=== PATIENT | female | born 1970 | race Caucasian/White ===

== ENCOUNTER 2020-03-25 07:04 | Emergency (ER) | payer OTHER ==
[2020-03-25 07:14] VITALS: RESP 18; TEMP 98.5
--- NOTE | 2020-03-25 07:55 | XR ---
EXAMINATION TYPE: XR elbow complete RT, XR wrist complete RT, XR forearm RT DATE OF EXAM: 03/25/2020 CLINICAL HISTORY: Fall injury with pain. TECHNIQUE: Frontal, lateral and oblique images of the right wrist and elbow are obtained. Additional fourth scaphoid view right wrist. 2 views right forearm. COMPARISON: None FINDINGS: There are abnormal fat pad signs. Acute nondisplaced transverse fracture through the radia l head is present. 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 The overlying soft tissue floyd ears unremarkable. 2 views of right forearm show no additional acute fracture or dislocation. Overlying soft tissue is u nremarkable. No additional acute fracture or dislocation is seen in the right wrist. Carpal joint spaces are maint ained. Overlying soft tissue is unremarkable. IMPRESSION: There is acute nondisplaced intra-articular transverse fracture of the radial head. Mansoor tional acute avulsion type fracture from the proximal ulna with intra-articular 5 x 3 mm loose body n oted. (Initial encounter closed type posttraumatic fracture)
--- NOTE | 2020-03-25 08:16 | ED ---
General Adult HPI - General Chief complaint: Extremity Injury, Upper Stated complaint: Fall Time Seen by Provider: 03/25/20 07:16 Source: patient, RN notes reviewed Mode of arrival: ambulatory Limitations: no limitations - History of Present Illness Initial comments: 49-year-old female presents for mechanical fall yesterday. Patient states she has been starting to go for frequent walks and tripped over the sidewalk where there was an uneven area. Patient injured her elbow and has had pain radiating to her right wrist since that time. She did not hit her head. She is not on any blood thinners.Patient has no other complaints at this time including shortness of breath, chest pain, abdominal pain, nausea or vomiting, headache, or visual changes. - Related Data Home Medications Medication Instructions Recorded Confirmed clonazePAM [KlonoPIN] 1 mg PO BID 01/25/16 05/05/16 Ziprasidone HCl 160 mg PO DAILY 03/04/16 05/05/16 Vortioxetine Hydrobromide 20 mg PO 05/05/16 05/05/16 [Brintellix] Allergies Allergy/AdvReac Type Severity Reaction Status Date / Time No Known Allergies Allergy Verified 03/25/20 07:14 Review of Systems ROS Statement: Those systems with pertinent positive or pertinent negative responses have been documented in the HPI. ROS Other: All systems not noted in ROS Statement are negative. Past Medical History Past Medical History: No Reported History Additional Past Medical History / Comment(s): anxiety migraines History of Any Multi-Drug Resistant Organisms: None Reported Past Surgical History: No Surgical Hx Reported Past Psychological History: Anxiety, Depression Smoking Status: Current every day smoker Past Alcohol Use History: Rare Past Drug Use History: Marijuana General Exam Limitations: no limitations General appearance: alert, in no apparent distress Head exam: Present: atraumatic, normocephalic, normal inspection Eye exam: Present: normal appearance, PERRL, EOMI. Absent: scleral icterus, conjunctival injection, periorbital swelling ENT exam: Present: normal exam, mucous membranes moist Neck exam: Present: normal inspection. Absent: tenderness, meningismus, lymphadenopathy Respiratory exam: Present: normal lung sounds bilaterally Extremities exam: Present: tenderness (Tenderness along the radial head as well as the olecranon. No tenderness of the scaphoid or wrist or hand.), normal capillary refill (Capillary refill less than 2 seconds, radial pulse 2+.), other (Sensation intact in the right upper extremity. 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 Absent: full ROM (Patient able to flex right elbow to 90 has pain with additional flexion or extension. Full range of motion of the right hand didn't wrist.), pedal edema, joint swelling, calf tenderness Course Vital Signs 03/25/20 07:12 Temperature 98.5 F Pulse Rate 88 Respiratory 18 Rate Blood Pressure 148/62 O2 Sat by Pulse 98 Oximetry Procedures - Orthopedic Splinting/Casting Injury #1 Side: right Upper Extremity Injury Location: elbow Upper Extremity Immobilizer: posterior splint Additional Comments: Neurovascular status intact after splint applied Medical Decision Making - Medical Decision Making X-ray of the elbow wrist and forearm were obtained which showed acute nondisplaced intra-articular transverse fracture of the radial head. Additional acute avulsion type fracture of the proximal ulna with intra-articular 5 x 3 mm loose body noted. She was placed in a long-arm splint and given a sling. Recommended range of motion exercises with the shoulder. Recommend she follow up with orthopedics in the next day or 2. She will return here if she has any worsening symptoms. Disposition Clinical Impression: Elbow fracture, right Disposition: HOME SELF-CARE Condition: Good Instructions (If sedation given, give patient instructions): Elbow Fracture (ED) Additional Instructions: Please take Tylenol for pain. Please follow-up with orthopedics in one to 2 days. Wear sling and splint as directed. Continue to do range of motion exercises of the shoulder while wearing the sling. Return to the emergency department for any worsening symptoms. Is patient prescribed a controlled substance at d/c from ED?: No Referrals: Moises Herndon DO [Primary Care Provider] - 1-2 days Time of Disposition: 08:13
[2020-03-25] MEDS ORDERED: ACET/COD 300 MG/30 MG STARTER PACK 6 TAB BTL PO STA (08:33)
[2020-03-25 08:41] VITALS: BP 141/79; PULSE 82
== END 2020-03-25 08:41 | disposition home or self-care (01) ==
LOC: EC 07:04
DX: S52.124A Nondisplaced fracture of head of right radius, initial encounter for closed fracture (principal); F41.9 Anxiety disorder, unspecified; F32.9 Major depressive disorder, single episode, unspecified; F17.200 Nicotine dependence, unspecified, uncomplicated; Z79.899 Other long term (current) drug therapy; W01.0XXA Fall on same level from slipping, tripping and stumbling without subsequent striking against object, initial encounter; Y92.480 Sidewalk as the place of occurrence of the external cause
CPT/HCPCS: 29105; 99283

== ENCOUNTER → 2022-02-06 | Outpatient (CLI) | payer OTHER ==
--- NOTE | 2022-02-07 11:11 | MM ---
Reason for exam: screening (asymptomatic). Last mammogram was performed 10 years and 5 months ago. History: Took hormonal contraceptives for 18 years beginning at age 17. Physical Findings: A clinical breast exam by your physician is recommended on an annual basis and results should be correlated with mammographic findings. MG 3D Screening Mammo W/Cad Bilateral CC and MLO view(s) were taken. Prior study comparison: October 03, 2016, mammogram, performed at [facility]. July 12, 2015, mammogram, performed at [facility]. July 03, 2014, mammogram, performed at [facility]. September 13, 2011, bilateral digital screening mammo w/CAD. July 20, 2009, bilateral diagnostic digital mammog. There are scattered fibroglandular densities. There are benign appearing round calcifications bilaterally. There is no discrete abnormality. ASSESSMENT: Benign, BI-RAD 2 RECOMMENDATION: Routine screening mammogram of both breasts in 1 year.
== END | disposition home or self-care (01) ==
LOC: RADMAMWWP 07:01
PROVIDERS: ATTEND Student in an Organized Health Care Education/Training Program
DX: Z12.31 Encounter for screening mammogram for malignant neoplasm of breast (principal)
CPT/HCPCS: 77063; 77067

== ENCOUNTER 2022-09-14 10:54 | Inpatient (IN) | payer OTHER ==
[2022-09-14] MEDS ORDERED: ONDANSETRON 4 MG/2 ML VIAL IVP STA (11:19)
[2022-09-14] MEDS ORDERED: SODIUM CHLORIDE 0.9% 1,000 ML IV STA (11:19)
[2022-09-14] MEDS ORDERED: KETOROLAC 15 MG/ML 1 ML VIAL IVP STA (11:19)
--- NOTE | 2022-09-14 11:25 | ED ---
Abdominal Pain HPI - General Chief Complaint: Abdominal Pain Stated Complaint: PCP sent for xray,ABD pain Time Seen by Provider: 09/14/22 11:11 Source: patient, RN notes reviewed Mode of arrival: ambulatory Limitations: no limitations - History of Present Illness Initial Comments: 52-year-old female presents emergency Department chief complaint of abdominal pain. Patient is started yesterday morning has gradually worsened. Patient does admit to fever. Patient states it's in her right lower quadrant. Patient does state that she saw her PCP today sent here for further evaluation patient states she thought she had a urinary tract infection or kidney infection but states her urinalysis was unremarkable. Patient does not have any dysuria she states pain is slightly tender low back. No chest pain or shortness breath she's had a prior ablation no other abdominal surgeries. - Related Data Home Medications Medication Instructions Recorded Confirmed clonazePAM [KlonoPIN] 1 mg PO BID PRN 01/25/16 09/14/22 Allergies Allergy/AdvReac Type Severity Reaction Status Date / Time mirtazapine [From Remeron] AdvReac "crazy Verified 09/14/22 12:05 dreams" Review of Systems ROS Statement: Those systems with pertinent positive or pertinent negative responses have been documented in the HPI. ROS Other: All systems not noted in ROS Statement are negative. Past Medical History Past Medical History: No Reported History Additional Past Medical History / Comment(s): anxiety migraines History of Any Multi-Drug Resistant Organisms: None Reported Past Surgical History: Section Additional Past Surgical History / Comment(s): uterine ablation Past Psychological History: Anxiety, Depression Smoking Status: Current some day smoker Past Alcohol Use History: None Reported, Rare Past Drug Use History: None Reported, Marijuana General Exam Limitations: no limitations General appearance: alert, in no apparent distress Head exam: Present: atraumatic, normocephalic, normal inspection Eye exam: Present: normal appearance, PERRL, EOMI. Absent: scleral icterus, conjunctival injection, periorbital swelling ENT exam: Present: normal exam, mucous membranes moist Neck exam: Present: normal inspection, full ROM. Absent: tenderness, meningismus, lymphadenopathy Respiratory exam: Present: normal lung sounds bilaterally. Absent: respiratory distress, wheezes, rales, rhonchi, stridor Cardiovascular Exam: Present: normal rhythm, tachycardia, normal heart sounds. Absent: systolic murmur, diastolic murmur, rubs, gallop, clicks GI/Abdominal exam: Present: soft, tenderness (Right lower quadrant), normal bowel sounds. Absent: distended, guarding, rebound, rigid Back exam: Absent: CVA tenderness (R), CVA tenderness (L) Neurological exam: Present: alert Skin exam: Present: warm, dry, intact, normal color. Absent: rash Course Vital Signs 09/14/22 11:06 Temperature 99.5 F Pulse Rate 104 H Respiratory 20 Rate Blood Pressure 107/74 O2 Sat by Pulse 100 Oximetry Medical Decision Making - Medical Decision Making 52-year-old presented for abdominal pain CT shows evidence of acute appendicitis with rupture, phlegmon formation. I did discuss case with Dr. Morse who reviewed the images patient was started on antibiotics and IV fluids will be kept nothing by mouth and pending surgery - Lab Data Result diagrams: 09/14/22 11:36 09/14/22 11:36 Lab Results 09/14/22 09/14/22 09/14/22 Range/Units 11:36 11:36 11:36 WBC 11.4 H (3.8-10.6) k/uL RBC 4.42 (3.80-5.40) m/uL Hgb 13.5 (11.4-16.0) gm/dL Hct 39.1 (34.0-46.0) % MCV 88.4 (80.0-100.0) fL MCH 30.4 (25.0-35.0) pg MCHC 34.4 (31.0-37.0) g/dL RDW 13.8 (11.5-15.5) % Plt Count 235 (150-450) k/uL MPV 7.9 Neutrophils % 73 % Lymphocytes % 18 % Monocytes % 6 % Eosinophils % 1 % Basophils % 0 % Neutrophils # 8.3 H (1.3-7.7) k/uL Lymphocytes # 2.1 (1.0-4.8) k/uL Monocytes # 0.7 (0-1.0) k/uL Eosinophils # 0.1 (0-0.7) k/uL Basophils # 0.0 (0-0.2) k/uL Sodium 138 (137-145) mmol/L Potassium 4.4 (3.5-5.1) mmol/L Chloride 101 (98-107) mmol/L Carbon Dioxide 24 (22-30) mmol/L Anion Gap 13 mmol/L BUN 12 (7-17) mg/dL Creatinine 0.62 (0.52-1.04) mg/dL Est GFR (CKD-EPI)AfAm >90 (>60 ml/min/1.73 sqM) Est GFR (CKD-EPI)NonAf >90 (>60 ml/min/1.73 sqM) Glucose 93 (74-99) mg/dL Plasma Lactic Acid Jcarlos 1.3 (0.7-2.0) mmol/L Calcium 9.0 (8.4-10.2) mg/dL Total Bilirubin 0.8 (0.2-1.3) mg/dL AST 17 (14-36) U/L ALT 16 (4-34) U/L Alkaline Phosphatase 94 (38-126) U/L Total Protein 6.9 (6.3-8.2) g/dL Albumin 4.2 (3.5-5.0) g/dL Lipase 34 (23-300) U/L Urine Color Urine Appearance (Clear) Urine pH (5.0-8.0) Ur Specific Jamul (1.001-1.035) Urine Protein (Negative) Urine Glucose (UA) (Negative) Urine Ketones (Negative) Urine Blood (Negative) Urine Nitrite (Negative) Urine Bilirubin (Negative) Urine Urobilinogen (<2.0) mg/dL Ur Leukocyte Esterase (Negative) 09/14/22 Range/Units 11:38 WBC (3.8-10.6) k/uL RBC (3.80-5.40) m/uL Hgb (11.4-16.0) gm/dL Hct (34.0-46.0) % MCV (80.0-100.0) fL MCH (25.0-35.0) pg MCHC (31.0-37.0) g/dL RDW (11.5-15.5) % Plt Count (150-450) k/uL MPV Neutrophils % % Lymphocytes % % Monocytes % % Eosinophils % % Basophils % % Neutrophils # (1.3-7.7) k/uL Lymphocytes # (1.0-4.8) k/uL Monocytes # (0-1.0) k/uL Eosinophils # (0-0.7) k/uL Basophils # (0-0.2) k/uL Sodium (137-145) mmol/L Potassium (3.5-5.1) mmol/L Chloride (98-107) mmol/L Carbon Dioxide (22-30) mmol/L Anion Gap mmol/L BUN (7-17) mg/dL Creatinine (0.52-1.04) mg/dL Est GFR (CKD-EPI)AfAm (>60 ml/min/1.73 sqM) Est GFR (CKD-EPI)NonAf (>60 ml/min/1.73 sqM) Glucose (74-99) mg/dL Plasma Lactic Acid Jcarlos (0.7-2.0) mmol/L Calcium (8.4-10.2) mg/dL Total Bilirubin (0.2-1.3) mg/dL AST (14-36) U/L ALT (4-34) U/L Alkaline Phosphatase (38-126) U/L Total Protein (6.3-8.2) g/dL Albumin (3.5-5.0) g/dL Lipase (23-300) U/L Urine Color Light Yellow Urine Appearance Clear (Clear) Urine pH 6.0 (5.0-8.0) Ur Specific Jamul 1.007 (1.001-1.035) Urine Protein Negative (Negative) Urine Glucose (UA) Negative (Negative) Urine Ketones Negative (Negative) Urine Blood Negative (Negative) Urine Nitrite Negative (Negative) Urine Bilirubin Negative (Negative) Urine Urobilinogen <2.0 (<2.0) mg/dL Ur Leukocyte Esterase Negative (Negative) Disposition Clinical Impression: Acute appendicitis with rupture Disposition: ADMITTED IP TO THIS HOSP Condition: Fair Referrals: Moises Herndon DO [Primary Care Provider] - 1-2 days Time of Disposition: 12:19
[2022-09-14 11:49] LABS: Basophils % (A) 0 %; Eosinophils # (A) 0.1 k/uL (0-0.7); Eosinophils % (A) 1 %; HCT 39.1 % (34.0-46.0); HGB 13.5 gm/dL (11.4-16.0); Lymphocytes # (A) 2.1 k/uL (1.0-4.8); Lymphocytes % (A) 18 %; MCH 30.4 pg (25.0-35.0); MCHC 34.4 g/dL (31.0-37.0); MCV 88.4 fL (80.0-100.0); Mean Platelet Volume 7.9; Monocytes # (A) 0.7 k/uL (0-1.0); Monocytes % (A) 6 %; Neutrophils # (A) 8.3 k/uL (1.3-7.7); Neutrophils % (A) 73 %; Platelet Count 235 k/uL (150-450); RBC 4.42 m/uL (3.80-5.40); RDW 13.8 % (11.5-15.5); WBC 11.4 k/uL (3.8-10.6)
[2022-09-14 11:51] LABS: Appearance,Urine Clear (Clear); Bilirubin,Urine Negative (Negative); Blood,Urine Negative (Negative); Color,Urine Light Yellow; Glucose,Urine (UA) Negative (Negative); Ketones,Urine Negative (Negative); Leukocyte Esterase,Urine Negative (Negative); Nitrite,Urine Negative (Negative); Protein,Urine Negative (Negative); Specific Gravity,Urine 1.007 (1.001-1.035); Urobilinogen,Urine <2.0 mg/dL (<2.0)
[2022-09-14 12:01] LABS: ALT 16 U/L (4-34); AST 17 U/L (14-36); African American GFR (CKD) >90 (>60 ml/min/1.73 sqM); Albumin 4.2 g/dL (3.5-5.0); Alkaline Phosphatase 94 U/L (38-126); Anion Gap 13 mmol/L; Blood Urea Nitrogen 12 mg/dL (7-17); Carbon Dioxide 24 mmol/L (22-30); Chloride 101 mmol/L (98-107); Glucose 93 mg/dL (74-99); Lipase 34 U/L (23-300); Non-African American GFR(CKD) >90 (>60 ml/min/1.73 sqM); Potassium 4.4 mmol/L (3.5-5.1); Sodium 138 mmol/L (137-145); Total Bilirubin 0.8 mg/dL (0.2-1.3); Total Protein 6.9 g/dL (6.3-8.2)
[2022-09-14] MEDS ORDERED: PIPERACILLIN-TAZOBACTAM 3.375 GM in SODIUM CHLORIDE 0.9% 100 ML IVPB STA (12:16)
[2022-09-14] MEDS ORDERED: SODIUM CHLORIDE 0.9% 1,000 ML IV ONE (12:17)
--- NOTE | 2022-09-14 12:19 | CT ---
EXAMINATION TYPE: CT abdomen pelvis w con CT DLP: 1334.4 mGycm, Automated exposure control for dose reduction was used. DATE OF EXAM: 09/14/2022 12:00 PM COMPARISON: None. CLINICAL INDICATION:Female, 52 years old with history of RLQ pain,fever; Right lower quadrant pain wi th fever TECHNIQUE: Standard CT of the abdomen and pelvis following the administration of 100 cc of Isovue 3 00 IV contrast material. Coronal and sagittal reformats were performed. FINDINGS: LOWER CHEST: Unremarkable ABDOMEN LIVER: Left hepatic lobe lobulated 3.0 cm cyst. Additional subcentimeter hypodensities within the holger er which are too small to characterize. GALLBLADDER AND BILE DUCTS: Unremarkable. PANCREAS: Unremarkable. SPLEEN: Unremarkable. ADRENAL GLANDS: Unremarkable. KIDNEYS AND URETERS: No evidence of hydronephrosis or renal calculus. The kidneys enhancement without suspicious focal lesion. PELVIS BLADDER: Unremarkable REPRODUCTIVE: Lobulated appearance to the uterus likely representing fibroid changes. ABDOMEN & PELVIS STOMACH AND BOWEL: Stomach and duodenum are unremarkable. Dilated fluid-filled appendix measuring up to 1.7 cm with some wall thickening. There is abnormal phlegmonous change at its base extending into the retroperitoneum and along the right psoas muscle. No gas identified. No definitive organization. No visualized appendicolith. No evidence of bowel obstruction. PERITONEUM: No evidence of pneumoperitoneum or free fluid. VASCULATURE: Mild atherosclerotic calcifications are present throughout the abdominal aorta and its b ranches. No evidence of aortic aneurysm. Pelvic phleboliths. MUSCULOSKELETAL: No acute osseous abnormalities. Mild degenerative disc disease most pronounced at L4 -L5. LYMPH NODES: No gross evidence for lymphadenopathy. SOFT TISSUE/ABDOMINAL WALL: Small fat filled hernia. IMPRESSION: Acute appendicitis with rupture at its base with surrounding phlegmonous change. No organized fluid c ollection. Findings called to and discussed with Dr. Des Montenegro at 12:15 PM on 09/14/2022.
[2022-09-14] MEDS ORDERED: NALOXONE 0.4 MG/ML 1 ML VIAL IV PRN (12:29)
[2022-09-14] MEDS ORDERED: ACETAMINOPHEN IV (For NPO) 1,000 MG in EMPTY BAG 1 BAG IVPB PRN (12:31)
[2022-09-14] MEDS: SODIUM CHLORIDE 0.9% 1,000 ML IV SCH ×2 (12:56→21:19)
[2022-09-14] MEDS: HYDROmorphone 0.5 MG/0.5 ML SYRINGE IVP PRN (13:01)
--- NOTE | 2022-09-14 15:01 | P.GSHP ---
History of Present Illness H&P Date: 09/14/22 CHIEF COMPLAINT: Right lower quadrant abdominal pain HISTORY OF PRESENT ILLNESS: This is a 52-year-old female who presented to the ER with complaints of right lower quadrant abdominal pain that started yesterday morning. Patient reports that she woke up with right lower quadrant abdominal pain that he continued to increase throughout the day. She reports that the patient did not radiate. She has been nauseous. She's had a fever as high as 101.4 at home. Patient had a computed tomography scan that showed acute appendicitis with rupture. She had leukocytosis, mild tachycardia on admission. Past surgical history includes and uterine ablation. She denies any cardiac history. PAST MEDICAL HISTORY: Anxiety and migraines PAST SURGICAL HISTORY: See list. MEDICATIONS: See list. ALLERGIES: See list. SOCIAL HISTORY: No illicit drug use. Occasional smoking and alcohol use REVIEW OF SYSTEMS: CONSTITUTIONAL: Denies fever or chills. HEENT: Denies blurred vision, vision changes, or eye pain. Denies hemoptysis CARDIOVASCULAR: Denies chest pain or pressure. RESPIRATORY: No shortness of breath. GASTROINTESTINAL: See HPI for pertinent findings HEMATOLOGIC: Denies bleeding disorders. GENITOURINARY: Denies any blood in urine or increased urinary frequency. SKIN: Denies pruitis. Denies rash. PHYSICAL EXAM: VITAL SIGNS: Reviewed GENERAL: Well-developed in no acute distress. HEENT: No sclera icterus. Extraocular movements grossly intact. Moist buccal mucosa. Head is atraumatic, normocephalic. No nasal drainage. ABDOMEN: Soft. Obese. Nondistended. Right lower quadrant tenderness with palpation NEUROLOGIC: Alert and oriented. Cranial nerves II through XII grossly intact. LABORATORY DATA: WBC is 11.4 Hgb 13.5 platelets 235 Sodium is 138 potassium 4.4 creatinine 0.62 Lactic acid 1.3 LFTs are normal Lipase 34 Urinalysis negative Urine hCG not detected IMAGING: Computed tomography scan abdomen and pelvis showing acute appendicitis with rupture at its base with surrounding phlegmonous change. No organized fluid collection. ASSESSMENT: 1. Acute ruptured appendicitis PLAN: -Patient scheduled for laparoscopic, possible open appendectomy today with Dr. Morse -Keep patient nothing by mouth -Continue IV fluids -Continue IV antibiotics -Continue pain medication as needed -Continue antiemetics Physician Television News Producer note has been reviewed by physician. Signing provider agrees with the documented findings, assessment, and plan of care. Patient presents with acute onset abdominal pain right lower quadrant yesterday. CAT scan shows impressive inflammatory changes around the appendix. On exam patient with significant right lower quadrant and right upper quadrant tenderness. We'll proceed with laparoscopic, possible open appendectomy at this time. Risks of bleeding, infection, abscess, possible need for bowel resection, possible need f or conversion, bladder bowel and ureteral injury, hernia all reviewed. She understands and wishes to proceed. Past Medical History Past Medical History: No Reported History Additional Past Medical History / Comment(s): anxiety migraines History of Any Multi-Drug Resistant Organisms: None Reported Past Surgical History: Section Additional Past Surgical History / Comment(s): uterine ablation Past Psychological History: Anxiety, Depression Smoking Status: Current some day smoker Past Alcohol Use History: None Reported, Rare Past Drug Use History: None Reported, Marijuana Medications and Allergies Home Medications Medication Instructions Recorded Confirmed Type clonazePAM [KlonoPIN] 1 mg PO BID PRN 01/25/16 09/14/22 History Allergies Allergy/AdvReac Type Severity Reaction Status Date / Time mirtazapine [From Remeron] AdvReac "crazy Verified 09/14/22 15:40 dreams" Surgical - Exam Vital Signs Temp Pulse Resp BP Pulse Ox 99.5 F 104 H 20 107/74 100 09/14/22 11:06 09/14/22 11:06 09/14/22 11:06 09/14/22 11:06 09/14/22 11:06 Results - Labs 09/14/22 11:36 09/14/22 11:36 Abnormal Lab Results - Last 24 Hours (Table) 09/14/22 Range/Units 11:36 WBC 11.4 H (3.8-10.6) k/uL Neutrophils # 8.3 H (1.3-7.7) k/uL Diabetes panel 09/14/22 Range/Units 11:36 Sodium 138 (137-145) mmol/L Potassium 4.4 (3.5-5.1) mmol/L Chloride 101 (98-107) mmol/L Carbon Dioxide 24 (22-30) mmol/L BUN 12 (7-17) mg/dL Creatinine 0.62 (0.52-1.04) mg/dL Glucose 93 (74-99) mg/dL Calcium 9.0 (8.4-10.2) mg/dL AST 17 (14-36) U/L ALT 16 (4-34) U/L Alkaline Phosphatase 94 (38-126) U/L Total Protein 6.9 (6.3-8.2) g/dL Albumin 4.2 (3.5-5.0) g/dL Calcium panel 09/14/22 Range/Units 11:36 Calcium 9.0 (8.4-10.2) mg/dL Albumin 4.2 (3.5-5.0) g/dL Pituitary panel 09/14/22 Range/Units 11:36 Sodium 138 (137-145) mmol/L Potassium 4.4 (3.5-5.1) mmol/L Chloride 101 (98-107) mmol/L Carbon Dioxide 24 (22-30) mmol/L BUN 12 (7-17) mg/dL Creatinine 0.62 (0.52-1.04) mg/dL Glucose 93 (74-99) mg/dL Calcium 9.0 (8.4-10.2) mg/dL Adrenal panel 09/14/22 Range/Units 11:36 Sodium 138 (137-145) mmol/L Potassium 4.4 (3.5-5.1) mmol/L Chloride 101 (98-107) mmol/L Carbon Dioxide 24 (22-30) mmol/L BUN 12 (7-17) mg/dL Creatinine 0.62 (0.52-1.04) mg/dL Glucose 93 (74-99) mg/dL Calcium 9.0 (8.4-10.2) mg/dL Total Bilirubin 0.8 (0.2-1.3) mg/dL AST 17 (14-36) U/L ALT 16 (4-34) U/L Alkaline Phosphatase 94 (38-126) U/L Total Protein 6.9 (6.3-8.2) g/dL Albumin 4.2 (3.5-5.0) g/dL
[2022-09-14] MEDS ORDERED: IV FLUID CONTINUATION 900 ML IV ONE ×2 (15:39)
[2022-09-14] MEDS ORDERED: HEPARIN SODIUM,PORCINE 5,000 UNIT/ML 1 ML VIAL SQ ONE (15:53)
[2022-09-14] MEDS ORDERED: HEPARIN SODIUM,PORCINE/PF 5,000 UNIT/0.5 ML SYRINGE SQ ONE (15:54)
[2022-09-14] MEDS ORDERED: SODIUM CHLORIDE 0.9% 50 ML with ceFAZolin 2,000 MG IV ONE ×2 (17:12)
[2022-09-14] MEDS ORDERED: GLYCOPYRROLATE 0.2 MG/ML 2 ML VIAL ONE (17:13)
[2022-09-14] MEDS ORDERED: DEXAMETHASONE SOD PHOSPHATE 4 MG/ML 1 ML VIAL ONE (17:13)
[2022-09-14] MEDS ORDERED: SODIUM CHLORIDE 0.9% (PF) 10 ML VIAL ONE (17:13)
[2022-09-14] MEDS ORDERED: PROPOFOL 10 MG/ML 20 ML VIAL IV ONE (17:13)
[2022-09-14] MEDS ORDERED: ROPIVACAINE 5 MG/ML 30 ML VIAL ONE (17:13)
[2022-09-14] MEDS ORDERED: PHENYLEPHRINE-0.9% NACL SYG 1,000 MCG/10 ML SYRINGE ONE (17:13)
[2022-09-14] MEDS ORDERED: HYDROmorphone (PF) 1 MG/ML ONE (17:13)
[2022-09-14] MEDS ORDERED: SUCCINYLCHOLINE CHLORIDE 200 MG/10 ML VIAL IV ONE (17:13)
[2022-09-14] MEDS ORDERED: MIDAZOLAM 2 MG/2 ML VIAL ONE (17:13)
[2022-09-14] MEDS ORDERED: fentaNYL (PF) 50 MCG/ML 2 ML AMP ONE (17:13)
[2022-09-14] MEDS ORDERED: ROCURONIUM 10 MG/ML (5 ML VIAL) IV ONE (17:13)
[2022-09-14] MEDS ORDERED: LIDOCAINE 2% INJ 20 MG/ML (2 ML VIAL) ONE (17:13)
[2022-09-14] MEDS ORDERED: NEOSTIGMINE 1 MG/ML 10 ML VIAL ONE (17:13)
[2022-09-14] MEDS ORDERED: BUPIVACAINE (PF) 0.25% 30 ML VIAL SQ ONE (17:40)
[2022-09-14] MEDS ORDERED: HYDROmorphone 0.5 MG/0.5 ML SYRINGE IVP ONE (19:40)
[2022-09-14] MEDS ORDERED: ONDANSETRON 4 MG/2 ML VIAL IVP ONE (19:45)
--- NOTE | 2022-09-14 19:49 | P.OP ---
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 The patient was placed under general anesthesia. The abdomen was prepped and draped in the usual sterile fashion. A small vertical infraumbilical incision was made. The fascia was retracted anteriorly with Veteran forceps. The Veress needle was advanced into the peritoneal cavity. The saline drop test was normal. Insufflation took place to 15 mmHg. A 5 mm trocar was then placed. An additional 5 mm suprapubic trocar was placed under direct visualization as well as a 12 mm left lower quadrant trocar under direct visualization. The appendix was inspected. It was distended and inflamed. As I initially tried to grab the appendix and remove it inferiorly to inspect the base of the cecum a small defect in the thin wall of the appendix was identified. A clearish purulence fluid was noted to drain from that area. This was aspirated immediately. The base of the appendix at the cecum was difficult to visualize as the appendix was adherent to the cecum. Palpation however of the base of the cecum suggested the presence of significant induration or mass. I could tell very quickly that we would not be able to dissect down to the base of the appendix and complete a resection of that area laparoscopically and that ileocecectomy would be required at this time. The trochars were removed. A midline incision was made using the scalpel. Dissection through the subcutaneous fat and fascia took place using electrocautery. The Bookwalter retractor was utilized. The cecum and ascending colon were mobilized two th[address] the way to the hepatic flexure. Once I had adequate mobilization the small bowel was divided using a linear 75 stapler approximately 10 cm proximal to the ileocecal valve. There was noted to be an abscess present at the junction between the appendix and the retroperitoneum. As we were dissecting some purulent fluid was again encountered in that area. The patient had a large amount of fat that was indurated posterior to the cecum that was involved in this phlegmon. This was resected as it appeared adherent to the cecum. The ureter was visualized and preserved. We were able to bring the cecum medially. Once I had adequate space the ascending colon was divided using a linear 75 stapler. The mesentery wasn't divided using both 0 silk ties and the LigaSure device. Following that a [id number] anastomosis took place between the antimesenteric portions of the small bowel and the ascending colon. The antimesenteric portion of the staple line was excised at both spots. A linear 75 stapler was fired along the antimesenteric border. After the stapler was fired and the patient was noted to have solid stool in the ascending colon. I had to remove some of this in order to complete the staple line. A transverse TX 60 stapler was used at that time. 2 small areas of bleeding along the staple line were controlled using [id number] 3-0 GI silk. A 3-0 GI silk crotch stitch was then placed. The lumen between the small bowel and colon was about 3-4 cm. The area was then copiously irrigated. I placed a drain posterior to t he anastomosis in the right gutter. This came out through the lateral left lower quadrant 12 mm trocar site. The abdomen was then copiously irrigated as well. No purulence was encountered. Palpation of the right tube and ovary was normal with the exception of a small cyst on the fallopian tubes. This measured 1 cm. This appeared to be a simple cyst. The liver by palpation seemed normal. No additional intra-abdominal abnormalities were encountered. The midline fascia was then reapproximated using 2 separate double-stranded #1 PDS sutures. In doing so I noted 2 separate defects at the base of the umbilicus. The fascia was dissected and excised in that area so that we were reapproximated healthy fascia. In doing so we repaired the umbilical hernia present. The subcutaneous tissues were irrigated. No bleeding was seen. These were reapproximated using 3-0 Vicryl sutures. The skin was reapproximated using trey. A sterile dressings then applied. DISPOSITION: Stable to recovery room
[2022-09-14] MEDS ORDERED: MEPERIDINE 50 MG/ML SYRINGE IVP ONE (19:50)
[2022-09-14] MEDS: ACETAMINOPHEN IV (For NPO) 1,000 MG in EMPTY BAG 1 BAG IVPB SCH (21:26)
[2022-09-14] MEDS: D5-0.45% NACL WITH KCL 20MEQ/L 1,000 ML IV SCH (21:26)
[2022-09-14] MEDS: metroNIDAZOLE-NS PMX 500 MG in SALINE 1 100ML.BAG IVPB SCH (21:26)
[2022-09-14] MEDS: PIPERACILLIN-TAZOBACTAM 3.375 GM in SODIUM CHLORIDE 0.9% 100 ML IVPB SCH (23:23)
[2022-09-14] MEDS: HEPARIN SODIUM,PORCINE/PF 5,000 UNIT/0.5 ML SYRINGE SQ SCH (23:23)
[2022-09-15] MEDS: HYDROmorphone 0.5 MG/0.5 ML SYRINGE IVP PRN (00:25)
[2022-09-15] MEDS: SODIUM CHLORIDE 0.9% 1,000 ML IV SCH ×2 (02:18→12:14)
[2022-09-15] MEDS: ACETAMINOPHEN IV (For NPO) 1,000 MG in EMPTY BAG 1 BAG IVPB SCH ×3 (02:21→13:41)
[2022-09-15] MEDS: metroNIDAZOLE-NS PMX 500 MG in SALINE 1 100ML.BAG IVPB SCH ×3 (04:13→19:58)
[2022-09-15] MEDS: HYDROmorphone 1 MG/ML 1 ML SYRINGE IVP PRN ×3 (04:14→13:40)
[2022-09-15] MEDS: D5-0.45% NACL WITH KCL 20MEQ/L 1,000 ML IV SCH ×3 (04:15→16:02)
--- NOTE | 2022-09-15 07:15 | P.ANPRN ---
Procedure Note - Anesthesia - Nerve Block Performed Bilateral Erector Spinae Single Time Out Performed: Yes Date of Procedure: 09/14/22 Location of Patient: PreOp Indication: Acute Post-Operative Pain, Requested by Surgeon Sedation Type: Sedate with meaningful contact maintained Preparation: Sterile Prep Position: Sitting Needle Types: Pajunk Needle Gauge: 21 Ultrasound used to visualize needle placement: Yes Ultrasound used to observe medication spread: Yes Blood Aspirated: No Pain Paresthesia on Injection Noted: No Resistance on Injection: Normal Image Stored and Saved: Yes Events: Uneventful and Well Tolerated (Ropivacaine 0.515 mL plus normal saline 10 mL was dexamethasone 4 mg given bilaterally at L1)
[2022-09-15] MEDS: PANTOPRAZOLE 40 MG/10 ML VIAL IV SCH (07:23)
[2022-09-15] MEDS: HEPARIN SODIUM,PORCINE/PF 5,000 UNIT/0.5 ML SYRINGE SQ SCH ×2 (07:24→15:56)
[2022-09-15] MEDS: PIPERACILLIN-TAZOBACTAM 3.375 GM in SODIUM CHLORIDE 0.9% 100 ML IVPB SCH ×2 (08:25→15:55)
[2022-09-15] MEDS: KETOROLAC 15 MG/ML 1 ML VIAL IVP SCH ×3 (10:38→21:27)
[2022-09-15 10:47] LABS: Basophils # (A) 0.01 X 10*3/uL (0.00-0.10); Basophils % (A) 0.1 %; Eosinophils # (A) 0 X 10*3/uL (0.04-0.35); Eosinophils % (A) 0 %; HCT 36.7 % (37.2-46.3); HGB 11.9 g/dL (12.0-15.0); Immature Grans, Automated 0.3 %; Lymphocytes # (A) 0.47 X 10*3/uL (0.90-5.00); Lymphocytes % (A) 4.5 %; MCH 29.8 pg (27.0-32.0); MCHC 32.4 g/dL (32.0-37.0); MCV 91.8 fL (80.0-97.0); Mean Platelet Volume 9.8 fL (9.5-12.2); Monocytes # (A) 0.32 X 10*3/uL (0.20-1.00); Monocytes % (A) 3.1 %; NRBC Per 100 WBC 0 /100 WBCS (0.0-0.0); Platelet Count 251 X 10*3/uL (140-440); RDW 13.9 % (11.5-14.5); WBC 10.33 X 10*3/uL (4.50-10.00)
[2022-09-15 11:04] LABS: African American GFR (CKD) 115.5 (60.0-200.0); Anion Gap 11.4 mmol/L (10.00-18.00); BUN/Creat Ratio 10.43 Ratio (12.00-20.00); Blood Urea Nitrogen 7.3 mg/dL (9.0-27.0); Calcium 8.4 mg/dL (8.7-10.3); Carbon Dioxide 20.6 mmol/L (20.0-27.5); Non-African American GFR(CKD) 99.6 (60.0-200.0); Potassium 4.8 mmol/L (3.5-5.5)
--- NOTE | 2022-09-15 13:43 | P.PN ---
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 Patient complaining of pain rating it about a 6 out of 10. She denies any nausea or vomiting. Denies any flatus. Afebrile. WBC 11.4 down to 10.33 hemoglobin 11.9 platelets 251. HUAN drain with 45 mL serosanguineous output PHYSICAL EXAM: VITAL SIGNS: Reviewed. GENERAL: Well-developed in no acute distress. HEENT: No sclera icterus. Extraocular movements grossly intact. Moist buccal mucosa. Head is atraumatic, normocephalic. ABDOMEN: Soft. Nondistended. Tenderness at incision site. Incisional dressing clean dry and intact. HUAN drain with serosanguineous output NEUROLOGIC: Alert and oriented. Cranial nerves II through XII grossly intact. ASSESSMENT: 1. 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 Signing provider agrees with the documented findings, assessment, and plan of care. Objective - Vital Signs Vital signs: Vital Signs Temp 97.7 F 09/15/22 12:36 Pulse 66 09/15/22 12:36 Resp 18 09/15/22 12:36 BP 98/60 09/15/22 12:36 Pulse Ox 95 09/15/22 12:36 FiO2 Intake & Output 09/14/22 09/15/22 09/15/22 18:59 06:59 18:59 Intake Total 850 810 Output Total 195 1400 Balance 850 615 -1400 Weight 94.347 kg 94.347 kg Intake: IV 850 100 Oral 710 Output: Drainage 45 Left Abdomen 45 Urine 100 1400 Estimated Blood Loss 50 Other: Voiding Method Indwelling Catheter Indwelling Catheter - Labs CBC & Chem 7: 09/15/22 06:44 09/15/22 06:44 Labs: Abnormal Lab Results - Last 24 Hours (Table) 09/15/22 09/15/22 Range/Units 06:44 06:44 WBC 10.33 H (4.50-10.00) X 10*3/uL RBC 4.00 L (4.10-5.20) X 10*6/uL Hgb 11.9 L (12.0-15.0) g/dL Hct 36.7 L (37.2-46.3) % Neutrophils # 9.50 H (1.80-7.70) X 10*3/uL Lymphocytes # 0.47 L (0.90-5.00) X 10*3/uL Eosinophils # 0 L (0.04-0.35) X 10*3/uL BUN 7.3 L (9.0-27.0) mg/dL BUN/Creatinine Ratio 10.43 L (12.00-20.00) Ratio Glucose 247 H (70-110) mg/dL Calcium 8.4 L (8.7-10.3) mg/dL
[2022-09-15] MEDS: clonazePAM 1 MG TAB PO PRN (15:56)
--- NOTE | 2022-09-15 22:49 | P.CONS ---
History of Present Illness - Reason for Consult Consult date: 09/15/22 Requesting physician: Rodger Morse - History of Present Illness his is a 52-year-old female who I sent to the emergency room from my office with complaints of right lower quadrant abdominal pain that started yesterday morning. Patient reports that she woke up with right lower quadrant abdominal pain that he continued to increase throughout the day. She reports that the patient did not radiate. She has been nauseous. She's had a fever as high as 101.4 at home. Patient had a computed tomography scan that showed acute appendicitis with rupture. She had leukocytosis, mild tachycardia on admission. Past surgical history includes and uterine ablation. She denies any cardiac history. She was seen by Dr. Joyner in consultation and taken to surgery for appendectomy Review of Systems GENERAL: Patient with fever. Denies chills. EYES: Denies blurred vision. Denies vision changes. Denies eye pain. EARS, NOSE, MOUTH, & THROAT: Denies headache. Denies sore throat. Denies ear pain. RESPIRATORY: Denies cough. Denies shortness of breath. Denies sputum production. Denies hemoptysis. CARDIOVASCULAR: Denies chest pain or pressure. Denies palpitations. Denies arrhythmias. GASTROINTESTINAL: Admits to abdominal pain. Denies diarrhea. Denies constipation. Positive for nausea. Denies vomiting. Denies heartburn. Denies blood in the stool. GENITOURINARY: Denies urinary frequency. Denies burning. Denies dysuria. Denies cloudy urine. Denies blood in the urine. MUSCULOSKELETAL: Denies myalgias. Denies joint swelling. Denies decreased range of motion beyond patients baseline. INTEGUMENTARY: Denies pruitis. Denies rash. PSYCHIATRIC: Denies suicidal or homicial ideations. ENDOCRINE: Denies weight change. Denies polydipsia. Denies polyuria. HEMATOLOGIC: Denies bleeding disorders. Past Medical History Past Medical History: No Reported History Additional Past Medical History / Comment(s): anxiety migraines History of Any Multi-Drug Resistant Organisms: None Reported Past Surgical History: Section Additional Past Surgical History / Comment(s): uterine ablation Smoking Status: Current some day smoker Medications and Allergies Home Medications Medication Instructions Recorded Confirmed Type clonazePAM [KlonoPIN] 1 mg PO BID PRN 01/25/16 09/14/22 History Allergies Allergy/AdvReac Type Severity Reaction Status Date / Time mirtazapine [From Remeron] AdvReac "crazy Verified 09/14/22 15:40 dreams" Physical Exam Osteopathic Statement: *. No significant issues noted on an osteopathic structural exam other than those noted in the History and Physical/Consult. Vitals: Vital Signs Temp Pulse Resp BP Pulse Ox 09/15/22 19:08 98.7 F 59 L 15 100/67 95 09/15/22 12:36 97.7 F 66 18 98/60 95 09/15/22 05:16 98.1 F 81 16 100/66 98 09/15/22 01:05 97.8 F 73 18 109/68 95 09/15/22 01:04 84 110/73 96 09/14/22 23:00 98.0 F 100 18 100/67 94 L Intake and Output 09/15/22 09/15/22 09/15/22 06:59 14:59 22:59 Intake Total 590 3825 Output Total 1400 2765 Balance 590 -1400 1060 Intake: Intake, IV Titration 1675 Amount ACETAMINOPHEN IV (For NPO 100 ) 1,000 mg In Empty Bag 1 bag @ 400 mls/hr IVPB Q6H [facility] Rx#:[id number] D5-0.45% NaCl with KCl 1375 20Meq/l 1,000 ml @ 100 mls/hr IV .Q10H [facility] Rx#: [id number] metroNIDAZOLE-NS PMX 500 200 mg In Saline 1 100ml.bag @ 100 mls/hr IVPB Q8H [facility] Rx#:[id number] Oral 590 2150 Output: Drainage 40 Left Abdomen 40 Urine 1400 2725 Other: Voiding Method Indwelling Catheter GENERAL: This is a 52-year-old in distress at the time of examination. Pleasant and cooperative. HEENT: Head is atraumatic, normocephalic. Pupils are equal, round, and reactive to light. Sclerae anicteric. Conjunctivae are clear. Mucus membranes of the mouth are moist. Neck is supple. RESPIRATORY: Clear to auscultation. No wheezes, rales, or rhonchi. CARDIOVASCULAR: Regular rate and rhythm. S1 and S2 noted. No systolic or diastolic murmur auscultated. No JVD noted. No S3 or S4 noted. GASTROINTESTINAL: No distention noted. Abdomen soft and round. Normal active bowel sounds auscultated x 4 quadrants. No pain or tenderness noted upon palpation. INTEGUMENTARY: No cyanosis. No jaundice. No rashes noted. No cellulitis noted. EXTREMITIES: 2+ peripheral pulses. No evidence of peripheral edema. No calf tenderness noted. NEUROLOGIC: Cranial nerves II-XII intact. PSYCHIATRIC: Awake, alert, and oriented X 3. Appropriate affect. Intact judgement and insight. Results CBC & Chem 7: 09/15/22 06:44 09/15/22 06:44 Labs: Abnormal Lab Results - Last 24 Hours (Table) 09/15/22 09/15/22 Range/Units 06:44 06:44 WBC 10.33 H (4.50-10.00) X 10*3/uL RBC 4.00 L (4.10-5.20) X 10*6/uL Hgb 11.9 L (12.0-15.0) g/dL Hct 36.7 L (37.2-46.3) % Neutrophils # 9.50 H (1.80-7.70) X 10*3/uL Lymphocytes # 0.47 L (0.90-5.00) X 10*3/uL Eosinophils # 0 L (0.04-0.35) X 10*3/uL BUN 7.3 L (9.0-27.0) mg/dL BUN/Creatinine Ratio 10.43 L (12.00-20.00) Ratio Glucose 247 H (70-110) mg/dL Calcium 8.4 L (8.7-10.3) mg/dL Microbiology - Last 24 Hours (Table) 09/14/22 12:55 Blood Culture - Preliminary Blood No Growth after 24 hours 09/14/22 12:40 Blood Culture - Preliminary Blood No Growth after 24 hours Assessment and Plan (1) Acute appendicitis with rupture Current Visit: Yes Status: Acute Code(s): K35.32 - AC APPENDICITIS W PERF, LOC PERITONITIS, & GANGR, W/O ABSCS SNOMED Code(s): 63801480 (2) Anxiety Current Visit: No Status: Acute Code(s): F41.9 - ANXIETY DISORDER, UNSPECIFIED SNOMED Code(s): 79999357 Plan: Continue postoperative care patient is recovering nicely continue postoperative antibiotics as ordered patient most likely be in the hospital another 24-36 hours thank you for the consultation and allowing me to participate in this patient's care.
[2022-09-16] MEDS: PIPERACILLIN-TAZOBACTAM 3.375 GM in SODIUM CHLORIDE 0.9% 100 ML IVPB SCH ×3 (00:05→16:07)
[2022-09-16] MEDS: HEPARIN SODIUM,PORCINE/PF 5,000 UNIT/0.5 ML SYRINGE SQ SCH ×4 (00:05→23:59)
[2022-09-16] MEDS: metroNIDAZOLE-NS PMX 500 MG in SALINE 1 100ML.BAG IVPB SCH ×3 (03:48→19:59)
[2022-09-16] MEDS: KETOROLAC 15 MG/ML 1 ML VIAL IVP SCH ×4 (03:48→21:37)
[2022-09-16] MEDS: clonazePAM 1 MG TAB PO PRN ×2 (04:41→21:37)
[2022-09-16] MEDS: D5-0.45% NACL WITH KCL 20MEQ/L 1,000 ML IV SCH ×2 (05:07→16:13)
[2022-09-16] MEDS: PANTOPRAZOLE 40 MG/10 ML VIAL IV SCH (08:04)
[2022-09-16] MEDS: HYDROmorphone 1 MG/ML 1 ML SYRINGE IVP PRN ×2 (08:05→17:17)
[2022-09-16 12:52] LABS: Basophils # (A) 0.01 X 10*3/uL (0.00-0.10); Basophils % (A) 0.1 %; Eosinophils # (A) 0 X 10*3/uL (0.04-0.35); Eosinophils % (A) 0 %; HCT 29.8 % (37.2-46.3); HGB 9.7 g/dL (12.0-15.0); Immature Grans, Automated 0.5 %; Lymphocytes # (A) 1.45 X 10*3/uL (0.90-5.00); Lymphocytes % (A) 15.1 %; MCH 29.8 pg (27.0-32.0); MCHC 32.6 g/dL (32.0-37.0); MCV 91.7 fL (80.0-97.0); Mean Platelet Volume 10.4 fL (9.5-12.2); Monocytes # (A) 0.55 X 10*3/uL (0.20-1.00); Monocytes % (A) 5.7 %; NRBC Per 100 WBC 0 /100 WBCS (0.0-0.0); Neutrophils # (A) 7.55 X 10*3/uL (1.80-7.70); Neutrophils % (A) 78.6 %; Platelet Count 258 X 10*3/uL (140-440); RBC 3.25 X 10*6/uL (4.10-5.20); RDW 14.2 % (11.5-14.5); WBC 9.61 X 10*3/uL (4.50-10.00)
[2022-09-16 13:37] LABS: Anion Gap 8.5 mmol/L (10.00-18.00); BUN/Creat Ratio 15.85 Ratio (12.00-20.00); Blood Urea Nitrogen 10.4 mg/dL (9.0-27.0); Calcium 8.4 mg/dL (8.7-10.3); Carbon Dioxide 21.5 mmol/L (20.0-27.5); Non-African American GFR(CKD) 101.8 (60.0-200.0); Potassium 4.1 mmol/L (3.5-5.5)
--- NOTE | 2022-09-16 14:32 | P.PN ---
Subjective Progress Note Date: 09/16/22 CHIEF COMPLAINT: Acute appendicitis with cecal tumor HISTORY OF PRESENT ILLNESS: The patient is a 52-year-old female status post appendectomy incidental cecal tumor. Family is at bedside. Patient ambulates to the bathroom or sits in a chair. No moderate activity. She is passing flatus. No nausea and vomiting. Pain is controlled. No bowel movement. Patient is requesting suppository. ROS: No fevers or chills. No new chest pain. No productive sputum PHYSICAL EXAM: VITAL SIGNS: Reviewed CONSTITUTIONAL: Well developed and in no acute distress. EYES: Conjuctivae without sclera icterus. Extraocular movements grossly intact. HEAD, EARS, NOSE, THROAT: Moist buccal mucosa. Head is atraumatic, normocephalic. Hears conversational speech. No nasal drainage. RESPIRATORY: Non-labored respirations and equal bilateral excursions. CARDIOVASCULAR: Palpable 2+ radial pulses. ABDOMEN: No peritonitis MUSCULOSKELETAL: No gross deformity of the lower extremities noted. No clubbing. No cyanosis. SKIN: Good skin turgor. Well perfused. NEUROLOGIC: Cranial nerves II through XII grossly intact. No focal or lateralizing signs. PSYCH: Appropriate affect. Alert and oriented to person, place and time. CLINICAL LABS: Reviewed. Hemoglobin down 11.9-9.7. WBC normal 9.61 ASSESSMENT: 1. Appendicitis with cecal mass PLAN: 1. Clear liquid diet 2. At this time hold suppository pending recovery. Objective - Vital Signs Vital signs: Vital Signs Temp 97.9 F 09/16/22 12:03 Pulse 52 L 09/16/22 12:03 Resp 16 09/16/22 12:03 BP 112/78 09/16/22 12:03 Pulse Ox 100 09/16/22 12:03 FiO2 Intake & Output 09/15/22 09/16/22 09/16/22 18:59 06:59 18:59 Intake Total 3825 350 Output Total 3640 1225 Balance 185 -1225 350 Intake: Intake, IV Titration 1675 Amount ACETAMINOPHEN IV (For NPO 100 ) 1,000 mg In Empty Bag 1 bag @ 400 mls/hr IVPB Q6H [facility] Rx#:[id number] D5-0.45% NaCl with KCl 1375 20Meq/l 1,000 ml @ 100 mls/hr IV .Q10H [facility] Rx#: [id number] metroNIDAZOLE-NS PMX 500 200 mg In Saline 1 100ml.bag @ 100 mls/hr IVPB Q8H [facility] Rx#:[id number] Oral 2150 350 Output: Drainage 40 Left Abdomen 40 Urine 3600 1225 Other: Voiding Method Indwelling Catheter Indwelling Catheter - Labs CBC & Chem 7: 09/16/22 07:38 09/16/22 07:38 Labs: Abnormal Lab Results - Last 24 Hours (Table) 09/16/22 Range/Units 07:38 RBC 3.25 L (4.10-5.20) X 10*6/uL Hgb 9.7 L (12.0-15.0) g/dL Hct 29.8 L (37.2-46.3) % Immature Gran # 0.05 H (0.00-0.04) X 10*3/uL Eosinophils # 0 L (0.04-0.35) X 10*3/uL Microbiology - Last 24 Hours (Table) 09/14/22 12:55 Blood Culture - Preliminary Blood No Growth after 24 hours 09/14/22 12:40 Blood Culture - Preliminary Blood No Growth after 24 hours
--- NOTE | 2022-09-16 17:16 | P.PN ---
Subjective Progress Note Date: 09/16/22 - Reason for Consult Consult date: 09/15/22 Requesting physician: Rodger Morse - History of Present Illness This is a 52-year-old female who I sent to the emergency room from my office with complaints of right lower quadrant abdominal pain that started yesterday morning. Patient reports that she woke up with right lower quadrant abdominal pain that he continued to increase throughout the day. She reports that the patient did not radiate. She has been nauseous. She's had a fever as high as 101.4 at home. Patient had a computed tomography scan that showed acute appendicitis with rupture. She had leukocytosis, mild tachycardia on admission. Past surgical history includes and uterine ablation. She denies any cardiac history. She was seen by Dr. Joyner in consultation and taken to surgery for appendectomy 09/16/2022 Patient is seen today with surgery following and patient is post appendectomy and continued on IV antibiotics. Clear liquids for now until surgery advances. Encouraged increased activity as tolerated and continued IS use. Patient is afebrile and tolerating the clears. No reports of chest pain or shortness of breath. Follow up on labs. Physical exam: GENERAL: This is a 52-year-old female well developed, well nourished HEENT: Head is atraumatic, normocephalic. Pupils are equal, round, and reactive to light. Sclerae anicteric. Conjunctivae are clear. Mucus membranes of the mouth are moist. Neck is supple. RESPIRATORY: diminished breath sounds bilaterally with no wheezes, rales, or rhonchi. CARDIOVASCULAR: S1 and S2 muffled GASTROINTESTINAL: No distention noted. Abdomen soft and round. Normal active bowel sounds auscultated x 4 quadrants. No pain or tenderness noted upon palpation. INTEGUMENTARY: No cyanosis. No jaundice. No rashes noted. No cellulitis noted. EXTREMITIES: 2+ peripheral pulses. No evidence of peripheral edema. No calf tenderness noted. NEUROLOGIC: Cranial nerves II-XII intact. PSYCHIATRIC: Awake, alert, and oriented X 3. Appropriate affect. Intact judgement and insight. Assessment: Acute appendicitis with rupture, post op day one History of anxiety/depression Continued ongoing nicotine use Obesity with a bmi of 31.6 History of migraines GI and DVT prophylaxis Full code Plan: Continue postoperative care per surgical guidelines Recommend to continue with IV antibiotics and follow up on labs Recommend to continue with clear liquids and advance per surgery recommendations Continue gentle hydrations and labs in the am Encouraged increased activity as tolerated Encouraged incentive spiromety use at least 10 times per hour. thank you for this consultation and we will continue to follow. The impression and plan of care has been dictated as a scribe by Elizabeth Suero, nurse practitioner as directed. Dr. Riley MD I have performed a history and examination and MDM of this patient, discussed the same with the dictator, and has been documented as a scribe. Based on total visit time, I have performed more than 50% of the visit. Any additional findings or plans will be noted. Objective - Vital Signs Vital signs: Vital Signs Temp 97.8 F 09/16/22 03:53 Pulse 55 L 09/16/22 03:53 Resp 16 09/16/22 03:53 BP 116/69 09/16/22 03:53 Pulse Ox 100 09/16/22 03:53 FiO2 Intake & Output 09/15/22 09/16/22 09/16/22 18:59 06:59 18:59 Intake Total 3825 Output Total 3640 1225 Balance 185 -1225 Intake: Intake, IV Titration 1675 Amount ACETAMINOPHEN IV (For NPO 100 ) 1,000 mg In Empty Bag 1 bag @ 400 mls/hr IVPB Q6H [facility] Rx#:[id number] D5-0.45% NaCl with KCl 1375 20Meq/l 1,000 ml @ 100 mls/hr IV .Q10H [facility] Rx#: [id number] metroNIDAZOLE-NS PMX 500 200 mg In Saline 1 100ml.bag @ 100 mls/hr IVPB Q8H [facility] Rx#:[id number] Oral 2150 Output: Drainage 40 Left Abdomen 40 Urine 3600 1225 Other: Voiding Method Indwelling Catheter Indwelling Catheter - Labs CBC & Chem 7: 09/16/22 07:38 09/16/22 07:38 Labs: Abnormal Lab Results - Last 24 Hours (Table) 09/15/22 09/15/22 Range/Units 06:44 06:44 WBC 10.33 H (4.50-10.00) X 10*3/uL RBC 4.00 L (4.10-5.20) X 10*6/uL Hgb 11.9 L (12.0-15.0) g/dL Hct 36.7 L (37.2-46.3) % Neutrophils # 9.50 H (1.80-7.70) X 10*3/uL Lymphocytes # 0.47 L (0.90-5.00) X 10*3/uL Eosinophils # 0 L (0.04-0.35) X 10*3/uL BUN 7.3 L (9.0-27.0) mg/dL BUN/Creatinine Ratio 10.43 L (12.00-20.00) Ratio Glucose 247 H (70-110) mg/dL Calcium 8.4 L (8.7-10.3) mg/dL Microbiology - Last 24 Hours (Table) 09/14/22 12:55 Blood Culture - Preliminary Blood No Growth after 24 hours 09/14/22 12:40 Blood Culture - Preliminary Blood No Growth after 24 hours
[2022-09-17] MEDS: metroNIDAZOLE-NS PMX 500 MG in SALINE 1 100ML.BAG IVPB SCH ×3 (03:52→19:56)
[2022-09-17] MEDS: KETOROLAC 15 MG/ML 1 ML VIAL IVP SCH ×4 (03:52→22:06)
[2022-09-17] MEDS: D5-0.45% NACL WITH KCL 20MEQ/L 1,000 ML IV SCH ×3 (03:55→23:51)
[2022-09-17 08:06] LABS: Basophils % (A) 0 %; Eosinophils % (A) 1 %; HCT 30.3 % (34.0-46.0); Lymphocytes # (A) 1.1 k/uL (1.0-4.8); Lymphocytes % (A) 15 %; MCH 29.9 pg (25.0-35.0); MCHC 33.4 g/dL (31.0-37.0); MCV 89.5 fL (80.0-100.0); Mean Platelet Volume 8.3; Monocytes # (A) 0.3 k/uL (0-1.0); Monocytes % (A) 4 %; Neutrophils # (A) 5.6 k/uL (1.3-7.7); Neutrophils % (A) 80 %; Platelet Count 264 k/uL (150-450); RBC 3.39 m/uL (3.80-5.40); RDW 13.5 % (11.5-15.5); WBC 7.1 k/uL (3.8-10.6)
[2022-09-17 08:19] LABS: HGB 10.1 gm/dL (11.4-16.0)
[2022-09-17] MEDS: PIPERACILLIN-TAZOBACTAM 3.375 GM in SODIUM CHLORIDE 0.9% 100 ML IVPB SCH ×5 (08:24→23:52)
[2022-09-17] MEDS: PANTOPRAZOLE 40 MG/10 ML VIAL IV SCH (08:24)
[2022-09-17 08:25] LABS: African American GFR (CKD) >90 (>60 ml/min/1.73 sqM); Anion Gap 8 mmol/L; Blood Urea Nitrogen 8 mg/dL (7-17); Calcium 7.8 mg/dL (8.4-10.2); Carbon Dioxide 23 mmol/L (22-30); Chloride 108 mmol/L (98-107); Glucose 114 mg/dL (74-99); Non-African American GFR(CKD) >90 (>60 ml/min/1.73 sqM); Potassium 4.1 mmol/L (3.5-5.1); Sodium 139 mmol/L (137-145)
[2022-09-17] MEDS: HEPARIN SODIUM,PORCINE/PF 5,000 UNIT/0.5 ML SYRINGE SQ SCH ×3 (08:25→23:51)
--- NOTE | 2022-09-17 15:09 | P.PN ---
Subjective Progress Note Date: 09/17/22 CHIEF COMPLAINT: Acute appendicitis with cecal tumor HISTORY OF PRESENT ILLNESS: The patient is a 52-year-old female status post appendectomy incidental cecal tumor. Family is at bedside. She reports passing flatus and having bowel movement. She tolerated a clear liquid. She reports minimal output from HUAN. She wants removal of her HUAN drain. ROS: No fevers or chills. No new chest pain. No productive sputum PHYSICAL EXAM: VITAL SIGNS: Reviewed CONSTITUTIONAL: Well developed and in no acute distress. EYES: Conjuctivae without sclera icterus. Extraocular movements grossly intact. HEAD, EARS, NOSE, THROAT: Moist buccal mucosa. Head is atraumatic, normocephalic. Hears conversational speech. No nasal drainage. RESPIRATORY: Non-labored respirations and equal bilateral excursions. CARDIOVASCULAR: Palpable 2+ radial pulses. ABDOMEN: No peritonitis. HUAN seropurulent MUSCULOSKELETAL: No gross deformity of the lower extremities noted. No clubbing. No cyanosis. SKIN: Good skin turgor. Well perfused. NEUROLOGIC: Cranial nerves II through XII grossly intact. No focal or lateral izing signs. PSYCH: Appropriate affect. Alert and oriented to person, place and time. CLINICAL LABS: Reviewed. Hemoglobin of 9.7-10.1. WBC normal 9.6-7.1. ASSESSMENT: 1. Appendicitis with cecal mass PLAN: 1. Advanced slowly to full liquid diet. 2. Continue HUAN drain Objective - Vital Signs Vital signs: Vital Signs Temp 98.6 F 09/17/22 11:20 Pulse 87 09/17/22 11:20 Resp 18 09/17/22 11:20 BP 122/84 09/17/22 11:20 Pulse Ox 98 09/17/22 11:20 FiO2 Intake & Output 09/16/22 09/17/22 09/17/22 18:59 06:59 18:59 Intake Total 890 2100 Output Total 0 Balance 890 2100 Intake: Intake, IV Titration 1500 Amount D5-0.45% NaCl with KCl 1200 20Meq/l 1,000 ml @ 100 mls/hr IV .Q10H [facility] Rx#: [id number] Piperacillin-Tazobactam 3 100 .375 gm In Sodium Chloride 0.9% 100 ml @ 25 mls/hr IVPB Q8HR [facility] Rx# :[id number] metroNIDAZOLE-NS PMX 500 200 mg In Saline 1 100ml.bag @ 100 mls/hr IVPB Q8H [facility] Rx#:[id number] Oral 890 600 Output: Drainage 0 Left Abdomen 0 Other: Voiding Method Toilet # Voids 2 3 2 - Labs CBC & Chem 7: 09/17/22 07:57 09/17/22 07:57 Labs: Abnormal Lab Results - Last 24 Hours (Table) 09/17/22 09/17/22 Range/Units 07:57 07:57 RBC 3.39 L (3.80-5.40) m/uL Hgb 10.1 L D (11.4-16.0) gm/dL Hct 30.3 L (34.0-46.0) % Chloride 108 H (98-107) mmol/L Glucose 114 H (74-99) mg/dL Calcium 7.8 L (8.4-10.2) mg/dL Microbiology - Last 24 Hours (Table) 09/14/22 12:55 Blood Culture - Preliminary Blood No Growth after 48 hours 09/14/22 12:40 Blood Culture - Preliminary Blood No Growth after 48 hours
[2022-09-17] MEDS: clonazePAM 1 MG TAB PO PRN ×2 (17:41→22:06)
[2022-09-17] MEDS: ONDANSETRON 4 MG/2 ML VIAL IVP PRN (17:41)
--- NOTE | 2022-09-18 03:10 | P.PN ---
Subjective Progress Note Date: 09/17/22 - Reason for Consult Consult date: 09/15/22 Requesting physician: Rodger Morse - History of Present Illness This is a 52-year-old female who I sent to the emergency room from my office with complaints of right lower quadrant abdominal pain that started yesterday morning. Patient reports that she woke up with right lower quadrant abdominal pain that he continued to increase throughout the day. She reports that the patient did not radiate. She has been nauseous. She's had a fever as high as 101.4 at home. Patient had a computed tomography scan that showed acute appendicitis with rupture. She had leukocytosis, mild tachycardia on admission. Past surgical history includes and uterine ablation. She denies any cardiac history. She was seen by Dr. Joyner in consultation and taken to surgery for appendectomy 09/16/2022 Patient is seen today with surgery following and patient is post appendectomy and continued on IV antibiotics. Clear liquids for now until surgery advances. Encouraged increased activity as tolerated and continued IS use. Patient is afebrile and tolerating the clears. No reports of chest pain or shortness of breath. Follow up on labs. 09/17/2022 Patient is seen today maintained on clear liquid diet and tolerating, to advance to full liquids per surgery,slowly. Patient reports passing gas and did have a very small bm today. Patient is afebrile and WBC is normalized. Continued on IV abx and will continue. Continue to encourage increased activity as tolerated niki ng with continued IS use at least 10 times per hour. Recommend repeat am labs. Physical exam: GENERAL: This is a 52-year-old female well developed, well nourished HEENT: Head is atraumatic, normocephalic. Pupils are equal, round, and reactive to light. Sclerae anicteric. Conjunctivae are clear. Mucus membranes of the mouth are moist. Neck is supple. RESPIRATORY: diminished breath sounds bilaterally with no wheezes, rales, or rhonchi. CARDIOVASCULAR: S1 and S2 muffled GASTROINTESTINAL: No distention noted. Abdomen soft and round. Normal active bowel sounds auscultated x 4 quadrants. No pain or tenderness noted upon palpation. INTEGUMENTARY: No cyanosis. No jaundice. No rashes noted. No cellulitis noted. EXTREMITIES: 2+ peripheral pulses. No evidence of peripheral edema. No calf tenderness noted. NEUROLOGIC: Cranial nerves II-XII intact. PSYCHIATRIC: Awake, alert, and oriented X 3. Appropriate affect. Intact judgement and insight. Assessment: Acute appendicitis with rupture, post op day 2 History of anxiety/depression Continued ongoing nicotine use Obesity with a bmi of 31.6 History of migraines GI and DVT prophylaxis Full code Plan: Continue postoperative care per surgical guidelines Recommend to continue with IV antibiotics and labs reviewed. WBC is normal today Recommend to continue with clear liquids and advance per surgery recommendations to full liquids Continue gentle hydrations and labs in the am Encouraged increased activity as tolerated Encouraged incentive spiromety use at least 10 times per hour. thank you for this consultation and we will continue to follow. The impression and plan of care has been dictated as a scribe by Elizabeth Suero, nurse practitioner as directed. Dr. Riley MD I have performed a history and examination and MDM of this patient, discussed the same with the dictator, and has been documented as a scribe. Based on total visit time, I have performed more than 50% of the visit. Any additional findings or plans will be noted. Objective - Vital Signs Vital signs: Vital Signs Temp 98.9 F 09/17/22 03:50 Pulse 78 09/17/22 03:50 Resp 16 09/17/22 03:50 BP 123/78 09/17/22 03:50 Pulse Ox 95 09/17/22 03:50 FiO2 Intake & Output 09/16/22 09/17/22 09/17/22 18:59 06:59 18:59 Intake Total 890 2100 Output Total 0 Balance 890 2100 Intake: Intake, IV Titration 1500 Amount D5-0.45% NaCl with KCl 1200 20Meq/l 1,000 ml @ 100 mls/hr IV .Q10H [facility] Rx#: [id number] Piperacillin-Tazobactam 3 100 .375 gm In Sodium Chloride 0.9% 100 ml @ 25 mls/hr IVPB Q8HR [facility] Rx# :[id number] metroNIDAZOLE-NS PMX 500 200 mg In Saline 1 100ml.bag @ 100 mls/hr IVPB Q8H [facility] Rx#:[id number] Oral 890 600 Output: Drainage 0 Left Abdomen 0 Other: Voiding Method Toilet # Voids 2 3 2 - Labs CBC & Chem 7: 09/17/22 07:57 09/17/22 07:57 Labs: Abnormal Lab Results - Last 24 Hours (Table) 09/16/22 09/16/22 09/17/22 Range/Units 07:38 07:38 07:57 RBC 3.25 L 3.39 L (4.10-5.20) X 10*6/uL Hgb 9.7 L 10.1 L D (12.0-15.0) g/dL Hct 29.8 L 30.3 L (37.2-46.3) % Immature Gran # 0.05 H (0.00-0.04) X 10*3/uL Eosinophils # 0 L (0.04-0.35) X 10*3/uL Chloride (98-107) mmol/L Anion Gap 8.50 L (10.00-18.00) mmol/L Glucose (74-99) mg/dL Calcium 8.4 L (8.7-10.3) mg/dL 09/17/22 Range/Units 07:57 RBC (4.10-5.20) X 10*6/uL Hgb (12.0-15.0) g/dL Hct (37.2-46.3) % Immature Gran # (0.00-0.04) X 10*3/uL Eosinophils # (0.04-0.35) X 10*3/uL Chloride 108 H (98-107) mmol/L Anion Gap (10.00-18.00) mmol/L Glucose 114 H (74-99) mg/dL Calcium 7.8 L (8.7-10.3) mg/dL Microbiology - Last 24 Hours (Table) 09/14/22 12:55 Blood Culture - Preliminary Blood No Growth after 48 hours 09/14/22 12:40 Blood Culture - Preliminary Blood No Growth after 48 hours
[2022-09-18] MEDS: metroNIDAZOLE-NS PMX 500 MG in SALINE 1 100ML.BAG IVPB SCH ×3 (03:43→19:59)
[2022-09-18] MEDS: KETOROLAC 15 MG/ML 1 ML VIAL IVP SCH ×2 (03:44→09:14)
[2022-09-18] MEDS: PANTOPRAZOLE 40 MG/10 ML VIAL IV SCH (09:04)
[2022-09-18] MEDS: PIPERACILLIN-TAZOBACTAM 3.375 GM in SODIUM CHLORIDE 0.9% 100 ML IVPB SCH ×2 (09:06→16:34)
[2022-09-18] MEDS: HEPARIN SODIUM,PORCINE/PF 5,000 UNIT/0.5 ML SYRINGE SQ SCH ×2 (09:06→16:34)
[2022-09-18 09:13] LABS: Basophils # (A) 0.02 X 10*3/uL (0.00-0.10); Basophils % (A) 0.3 %; Eosinophils % (A) 1.4 %; HGB 10.8 g/dL (12.0-15.0); Immature Grans, Automated 0.7 %; Lymphocytes # (A) 1.28 X 10*3/uL (0.90-5.00); MCHC 31.8 g/dL (32.0-37.0); MCV 91.4 fL (80.0-97.0); Mean Platelet Volume 9.2 fL (9.5-12.2); Monocytes # (A) 0.57 X 10*3/uL (0.20-1.00); NRBC Per 100 WBC 0 /100 WBCS (0.0-0.0); Neutrophils % (A) 71.6 %; Platelet Count 302 X 10*3/uL (140-440); RBC 3.72 X 10*6/uL (4.10-5.20); WBC 7.12 X 10*3/uL (4.50-10.00)
[2022-09-18] MEDS: HYDROmorphone 0.5 MG/0.5 ML SYRINGE IVP PRN (09:14)
[2022-09-18 09:24] LABS: African American GFR (CKD) 98.2 (60.0-200.0); BUN/Creat Ratio 8.75 Ratio (12.00-20.00); Calcium 8.5 mg/dL (8.7-10.3); Non-African American GFR(CKD) 84.8 (60.0-200.0); Potassium 4.5 mmol/L (3.5-5.5)
[2022-09-18] MEDS: D5-0.45% NACL WITH KCL 20MEQ/L 1,000 ML IV SCH ×2 (13:12→19:59)
--- NOTE | 2022-09-18 13:41 | P.PN ---
Subjective Progress Note Date: 09/18/22 CHIEF COMPLAINT: Ruptured appendicitis with possible cecal tumor HISTORY OF PRESENT ILLNESS: Patient is status post diagnostic laparoscopy converted to laparotomy with ileocecectomy and open repair of umbilical hernia. Patient does report abdominal pain. She denies any nausea or vomiting. She is having bowel movements and flatus. Afebrile. WBC is 7.12HB 10.8 platelets 302 sodas 140 potassium 4.5 creatinine 0.8 magnesium 2.6. Increased HUAN drain output with serosanguineous 190 mL output throughout the day yesterday and 70 mL output this morning PHYSICAL EXAM: VITAL SIGNS: Reviewed. GENERAL: Well-developed in no acute distress. HEENT: No sclera icterus. Extraocular movements grossly intact. Moist buccal mucosa. Head is atraumatic, normocephalic. ABDOMEN: Soft. Nondistended. Tenderness at incision site. Incisional dressing clean dry and intact. HUAN drain with serosanguineous output NEUROLOGIC: Alert and oriented. Cranial nerves II through XII grossly intact. ASSESSMENT: 1. 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 Signing provider agrees with the documented findings, assessment, and plan of care. I have personally seen and examined the patient, reviewed the MANAGER OF PRODUCTION /PAs history, exam and MDM and agree with the assessment and plan as written. Based on total visit time, I have performed more than 50% of the visit. As above: Patient doing well today. Only taking occasional [place] for pain. She had a low-grade fever last night. HUAN drain remained serous. We'll send fluid for creatinine level. Await pathology. Continue diet as ordered. Objective - Vital Signs Vital signs: Vital Signs Temp 98.2 F 09/18/22 11:22 Pulse 84 09/18/22 11:22 Resp 17 09/18/22 11:22 BP 100/68 09/18/22 11:22 Pulse Ox 96 09/18/22 11:22 FiO2 Intake & Output 09/17/22 09/18/22 09/18/22 18:59 06:59 18:59 Intake Total 1500 Output Total 190 150 Balance 1310 -150 Intake: Intake, IV Titration 1500 Amount D5-0.45% NaCl with KCl 1200 20Meq/l 1,000 ml @ 100 mls/hr IV .Q10H [facility] Rx#: [id number] Piperacillin-Tazobactam 3 100 .375 gm In Sodium Chloride 0.9% 100 ml @ 25 mls/hr IVPB Q8HR [facility] Rx# :[id number] metroNIDAZOLE-NS PMX 500 200 mg In Saline 1 100ml.bag @ 100 mls/hr IVPB Q8H [facility] Rx#:[id number] Output: Drainage 190 150 Left Abdomen 190 150 Other: Voiding Method Toilet Toilet # Voids 3 2 2 # Bowel Movements 1 - Labs CBC & Chem 7: 09/19/22 09:06 09/19/22 09:06 Labs: Abnormal Lab Results - Last 24 Hours (Table) 09/18/22 09/18/22 Range/Units 04:57 04:57 RBC 3.72 L (4.10-5.20) X 10*6/uL Hgb 10.8 L (12.0-15.0) g/dL Hct 34.0 L (37.2-46.3) % MCHC 31.8 L (32.0-37.0) g/dL MPV 9.2 L (9.5-12.2) fL Immature Gran # 0.05 H (0.00-0.04) X 10*3/uL Anion Gap 9.00 L (10.00-18.00) mmol/L BUN 7.0 L (9.0-27.0) mg/dL BUN/Creatinine Ratio 8.75 L (12.00-20.00) Ratio Glucose 114 H (70-110) mg/dL Calcium 8.5 L (8.7-10.3) mg/dL Microbiology - Last 24 Hours (Table) 09/14/22 12:55 Blood Culture - Preliminary Blood No Growth after 72 hours 09/14/22 12:40 Blood Culture - Preliminary Blood No Growth after 72 hours
[2022-09-18] MEDS: clonazePAM 1 MG TAB PO PRN (16:35)
--- NOTE | 2022-09-18 16:50 | P.PN ---
Subjective Progress Note Date: 09/18/22 - History of Present Illness 09/15/22 his is a 52-year-old female who I sent to the emergency room from my office with complaints of right lower quadrant abdominal pain that started yesterday morning. Patient reports that she woke up with right lower quadrant abdominal pain that he continued to increase throughout the day. She reports that the patient did not radiate. She has been nauseous. She's had a fever as high as 101.4 at home. Patient had a computed tomography scan that showed acute appendicitis with rupture. She had leukocytosis, mild tachycardia on admission. Past surgical history includes and uterine ablation. She denies any cardiac history. She was seen by Dr. Joyner in consultation and taken to surgery for appendectomy. 09/18/2022 reports diarrhea this morning. Nausea resolved. Maintained on IV fluids and antibiotics of Flagyl and Zosyn. Incentive spirometer up to 2500. Maintaining O2 sats in the high 90s on room air. Afebrile, normal WBC. Hemoglobin 10.8, platelets 302. Renal function stable. Reports surgical tenderness. Denies chest pain, palpitations or shortness of breath. Objective - Vital Signs Vital signs: Vital Signs Temp 98.2 F 09/18/22 11:22 Pulse 84 09/18/22 11:22 Resp 17 09/18/22 11:22 BP 100/68 09/18/22 11:22 Pulse Ox 96 09/18/22 11:22 FiO2 Intake & Output 09/17/22 09/18/22 09/18/22 18:59 06:59 18:59 Intake Total 1500 Output Total 190 150 Balance 1310 -150 Intake: Intake, IV Titration 1500 Amount D5-0.45% NaCl with KCl 1200 20Meq/l 1,000 ml @ 100 mls/hr IV .Q10H [facility] Rx#: [id number] Piperacillin-Tazobactam 3 100 .375 gm In Sodium Chloride 0.9% 100 ml @ 25 mls/hr IVPB Q8HR [facility] Rx# :[id number] metroNIDAZOLE-NS PMX 500 200 mg In Saline 1 100ml.bag @ 100 mls/hr IVPB Q8H [facility] Rx#:[id number] Output: Drainage 190 150 Left Abdomen 190 150 Other: Voiding Method Toilet Toilet # Voids 3 2 2 # Bowel Movements 1 - Exam GENERAL: Alert and oriented 3, sitting up in bed, no acute distress HEENT: Head is atraumatic, normocephalic. Pupils are equal, round, and reactive to light. Sclerae anicteric. Conjunctivae are clear. Mucus membranes of the mouth are moist. Neck is supple/no JVD. RESPIRATORY: Clear to auscultation. No wheezes, rales, or rhonchi. CARDIOVASCULAR: Regular rate and rhythm. S1 and S2 noted. No systolic or diastolic murmur auscultated. GASTROINTESTINAL: No distention noted. Abdomen soft and round. Positive bowel sounds. Status post surgery, abdominal binder present, HUAN with serosanguineous drainage INTEGUMENTARY: No cyanosis. No jaundice. No rashes noted. No cellulitis noted. EXTREMITIES: 2+ peripheral pulses. No evidence of peripheral edema. No calf ten derness noted. NEUROLOGIC: Cranial nerves II-XII intact. - Labs CBC & Chem 7: 09/18/22 04:57 09/18/22 04:57 Labs: Abnormal Lab Results - Last 24 Hours (Table) 09/18/22 09/18/22 Range/Units 04:57 04:57 RBC 3.72 L (4.10-5.20) X 10*6/uL Hgb 10.8 L (12.0-15.0) g/dL Hct 34.0 L (37.2-46.3) % MCHC 31.8 L (32.0-37.0) g/dL MPV 9.2 L (9.5-12.2) fL Immature Gran # 0.05 H (0.00-0.04) X 10*3/uL Anion Gap 9.00 L (10.00-18.00) mmol/L BUN 7.0 L (9.0-27.0) mg/dL BUN/Creatinine Ratio 8.75 L (12.00-20.00) Ratio Glucose 114 H (70-110) mg/dL Calcium 8.5 L (8.7-10.3) mg/dL Microbiology - Last 24 Hours (Table) 09/14/22 12:40 Blood Culture - Preliminary Blood No Growth after 96 hours 09/14/22 12:55 Blood Culture - Preliminary Blood No Growth after 96 hours Assessment and Plan Assessment: (1) Acute appendicitis with rupture with possible cecal tumor, status post diagnostic laparoscopy converted to laparotomy with ileocecectomy and open repair of umbilical hernia Current Visit: Yes Status: Acute Code(s): K35.32 - AC APPENDICITIS W PERF, LOC PERITONITIS, & GANGR, W/O ABSCS SNOMED Code(s): 02186221 (2) Anxiety Current Visit: No Status: Acute Code(s): F41.9 - ANXIETY DISORDER, UNSPECIFIED SNOMED Code(s): 82505041 Plan: Continue on current medication regime ,monitoring and symptomatic treatment. Maintain antibiotics. Aggressive pulmonary toileting with incentive spirometer reinforced. Diet advancement, pain management as per primary. Increase ambulation as tolerated. DVT prophylaxis in place with heparin subcu, GI prophylaxis in place with PPI. The impression and plan of care has been dictated as directed. : I performed a history and examination of this patient, discussed the same with the dictator. I agree with the dictator's note ,documented as a scribe. Any additional findings or plans will be noted.
[2022-09-18] MEDS: HYDROcodone/APAP 5-325MG 1 EACH TAB PO PRN (18:25)
[2022-09-19] MEDS: PIPERACILLIN-TAZOBACTAM 3.375 GM in SODIUM CHLORIDE 0.9% 100 ML IVPB SCH ×4 (00:03→23:20)
[2022-09-19] MEDS: HEPARIN SODIUM,PORCINE/PF 5,000 UNIT/0.5 ML SYRINGE SQ SCH ×4 (00:03→23:17)
[2022-09-19] MEDS: metroNIDAZOLE-NS PMX 500 MG in SALINE 1 100ML.BAG IVPB SCH ×3 (03:39→20:21)
[2022-09-19] MEDS: D5-0.45% NACL WITH KCL 20MEQ/L 1,000 ML IV SCH (05:57)
[2022-09-19] MEDS: PANTOPRAZOLE 40 MG/10 ML VIAL IV SCH (09:25)
[2022-09-19] MEDS: ONDANSETRON 4 MG/2 ML VIAL IVP PRN ×2 (09:29→16:14)
[2022-09-19 09:32] LABS: Basophils % (A) 0 %; Eosinophils # (A) 0.1 k/uL (0-0.7); Eosinophils % (A) 3 %; HCT 34.4 % (34.0-46.0); HGB 11.3 gm/dL (11.4-16.0); Lymphocytes # (A) 0.9 k/uL (1.0-4.8); Lymphocytes % (A) 25 %; MCHC 32.9 g/dL (31.0-37.0); MCV 91.3 fL (80.0-100.0); Mean Platelet Volume 7.7; Monocytes # (A) 0.3 k/uL (0-1.0); Monocytes % (A) 9 %; Neutrophils # (A) 2.2 k/uL (1.3-7.7); Neutrophils % (A) 61 %; Platelet Count 330 k/uL (150-450); RBC 3.77 m/uL (3.80-5.40); RDW 13.5 % (11.5-15.5); WBC 3.5 k/uL (3.8-10.6)
[2022-09-19 09:53] LABS: African American GFR (CKD) >90 (>60 ml/min/1.73 sqM); Anion Gap 8 mmol/L; Blood Urea Nitrogen 6 mg/dL (7-17); Calcium 7.7 mg/dL (8.4-10.2); Carbon Dioxide 22 mmol/L (22-30); Chloride 105 mmol/L (98-107); Glucose 125 mg/dL (74-99); Non-African American GFR(CKD) >90 (>60 ml/min/1.73 sqM); Sodium 135 mmol/L (137-145)
[2022-09-19 09:57] LABS: Potassium 4.7 mmol/L (3.5-5.1)
--- NOTE | 2022-09-19 13:57 | P.PN ---
Subjective Progress Note Date: 09/19/22 CHIEF COMPLAINT: Ruptured appendicitis with possible cecal tumor HISTORY OF PRESENT ILLNESS: Patient is status post diagnostic laparoscopy converted to laparotomy with ileocecectomy and open repair of umbilical hernia. Patient is sitting on the bedside chair. She reports her pain is controlled. She is having diarrhea. She did have a low-grade temp of 100.2 last night. WBC is 3.5 Hgb 11.3 platelets 3:30 sodium is 135 potassium is 4.7 creatinine 0.68. HUAN drain with 150 mL of serosanguineous fluid. 180 mL of more serious output this morning. Patient still having leaking noted around HUAN drain PHYSICAL EXAM: VITAL SIGNS: Reviewed. GENERAL: Well-developed in no acute distress. HEENT: No sclera icterus. Extraocular movements grossly intact. Moist buccal mucosa. Head is atraumatic, normocephalic. ABDOMEN: Soft. Nondistended. Tenderness at incision site. Incisional dressing clean dry and intact. HUAN drain with serous output. Leaking around the HUAN drain. NEUROLOGIC: Alert and oriented. Cranial nerves II through XII grossly intact. ASSESSMENT: 1. 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 Signing provider agrees with the documented findings, assessment, and plan of care. I have personally seen and examined the patient, reviewed the DENTAL MECHANIC /PAs history, exam and MDM and agree with the assessment and plan as written. Based on total visit time, I have performed more than 50% of the visit. As above: Patient doing well today. Only taking occasional [place] for pain. She had a low-grade fever last night. HUAN drain remained serous. We'll send fluid for creatinine level. Await pathology. Continue diet as ordered. Objective - Vital Signs Vital signs: Vital Signs Temp 98.9 F 09/19/22 11:08 Pulse 85 09/19/22 11:08 Resp 18 09/19/22 11:08 BP 117/78 09/19/22 11:08 Pulse Ox 100 09/19/22 11:08 FiO2 Intake & Output 09/18/22 09/19/22 09/19/22 18:59 06:59 18:59 Intake Total 2000 Output Total 150 100 80 Balance -150 1900 -80 Intake: Intake, IV Titration 1500 Amount D5-0.45% NaCl with KCl 1200 20Meq/l 1,000 ml @ 100 mls/hr IV .Q10H [facility] Rx#: [id number] Piperacillin-Tazobactam 3 100 .375 gm In Sodium Chloride 0.9% 100 ml @ 25 mls/hr IVPB Q8HR [facility] Rx# :[id number] metroNIDAZOLE-NS PMX 500 200 mg In Saline 1 100ml.bag @ 100 mls/hr IVPB Q8H [facility] Rx#:[id number] Oral 500 Output: Drainage 150 100 80 Left Abdomen 150 100 80 Other: Voiding Method Toilet Toilet # Voids 2 3 # Bowel Movements 4 1 - Labs CBC & Chem 7: 09/19/22 09:06 09/19/22 09:06 Labs: Abnormal Lab Results - Last 24 Hours (Table) 09/19/22 09/19/22 Range/Units 09:06 09:06 WBC 3.5 L (3.8-10.6) k/uL RBC 3.77 L (3.80-5.40) m/uL Hgb 11.3 L (11.4-16.0) gm/dL Lymphocytes # 0.9 L (1.0-4.8) k/uL Sodium 135 L (137-145) mmol/L BUN 6 L (7-17) mg/dL Glucose 125 H (74-99) mg/dL Calcium 7.7 L (8.4-10.2) mg/dL Microbiology - Last 24 Hours (Table) 09/14/22 12:40 Blood Culture - Preliminary Blood No Growth after 96 hours 09/14/22 12:55 Blood Culture - Preliminary Blood No Growth after 96 hours
[2022-09-19] MEDS: clonazePAM 1 MG TAB PO PRN (20:21)
[2022-09-20] MEDS: metroNIDAZOLE-NS PMX 500 MG in SALINE 1 100ML.BAG IVPB SCH ×3 (04:24→22:19)
[2022-09-20] MEDS: ONDANSETRON 4 MG/2 ML VIAL IVP PRN ×2 (05:11→16:47)
[2022-09-20] MEDS: PANTOPRAZOLE 40 MG/10 ML VIAL IV SCH (08:23)
[2022-09-20] MEDS: PIPERACILLIN-TAZOBACTAM 3.375 GM in SODIUM CHLORIDE 0.9% 100 ML IVPB SCH ×2 (08:23→16:47)
[2022-09-20] MEDS: HEPARIN SODIUM,PORCINE/PF 5,000 UNIT/0.5 ML SYRINGE SQ SCH ×2 (08:23→16:47)
[2022-09-20 09:20] LABS: African American GFR (CKD) >90 (>60 ml/min/1.73 sqM); Anion Gap 10 mmol/L; Blood Urea Nitrogen 6 mg/dL (7-17); Calcium 8.2 mg/dL (8.4-10.2); Carbon Dioxide 26 mmol/L (22-30); Chloride 101 mmol/L (98-107); Glucose 107 mg/dL (74-99); Non-African American GFR(CKD) 89 (>60 ml/min/1.73 sqM); Potassium 4.5 mmol/L (3.5-5.1); Sodium 137 mmol/L (137-145)
[2022-09-20] MEDS: clonazePAM 1 MG TAB PO PRN ×2 (11:34→22:26)
--- NOTE | 2022-09-20 13:06 | P.PN ---
Subjective Progress Note Date: 09/20/22 CHIEF COMPLAINT: Ruptured appendicitis with possible cecal tumor HISTORY OF PRESENT ILLNESS: Patient is status post diagnostic laparoscopy converted to laparotomy with ileocecectomy and open repair of umbilical hernia. Patient reports her pain is okay. She denies any nausea or vomiting. She continues to have diarrhea. Afebrile. Sodium is 137 potassium is 4.5 creatinine 0.77 fluid creatinine from HUAN drain is 0.7. HUAN drain with 240 mL output yesterday and 30 mL output this morning PHYSICAL EXAM: VITAL SIGNS: Reviewed. GENERAL: Well-developed in no acute distress. HEENT: No sclera icterus. Extraocular movements grossly intact. Moist buccal mucosa. Head is atraumatic, normocephalic. ABDOMEN: Soft. Nondistended. Tenderness at incision site. Incisional dressing clean dry and intact. HUAN drain with serous output. Leaking around the HUAN drain. NEUROLOGIC: Alert and oriented. Cranial nerves II through XII grossly intact. ASSESSMENT: 1. 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 Signing provider agrees with the documented findings, assessment, and plan of care. I have personally seen and examined the patient, reviewed the SEED SALES MANAGER /PAs history, exam and MDM and agree with the assessment and plan as written. Based on total visit time, I have performed more than 50% of the visit. As above: Patient still declines having significant pain although I have witnessed a few of the patient's abdominal cramps that usually leads to diarrhea and she appears uncomfortable during that. Overall patient says her discomforts are definitely improving each day. She has had some low-grade fevers. HUAN drain creatinine level it looks good. Abdominal exam reveals minimal tenderness and her incision is clean and dry. There is some serous drainage around the drain site. 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 We'll plan outpatient oncologic evaluation as the patient's condition improves. We'll repeat CBC tomorrow. Monitor for fevers today. Continue low fiber diet. Will plan discharge tomorrow if crampy abdominal discomfort improved. Objective - Vital Signs Vital signs: Vital Signs Temp 98.7 F 09/20/22 11:15 Pulse 75 09/20/22 11:15 Resp 17 09/20/22 11:15 BP 110/73 09/20/22 11:15 Pulse Ox 96 09/20/22 11:15 FiO2 Intake & Output 09/19/22 09/20/22 09/20/22 18:59 06:59 18:59 Intake Total 800 Output Total 140 30 Balance 660 -30 Intake: Intake, IV Titration 800 Amount D5-0.45% NaCl with KCl 400 20Meq/l 1,000 ml @ 100 mls/hr IV .Q10H [facility] Rx#: [id number] Piperacillin-Tazobactam 3 200 .375 gm In Sodium Chloride 0.9% 100 ml @ 25 mls/hr IVPB Q8HR [facility] Rx# :[id number] metroNIDAZOLE-NS PMX 500 200 mg In Saline 1 100ml.bag @ 100 mls/hr IVPB Q8H [facility] Rx#:[id number] Output: Drainage 140 30 Left Abdomen 140 30 Other: Voiding Method Toilet # Voids 2 # Bowel Movements 2 - Labs CBC & Chem 7: 09/19/22 09:06 09/20/22 08:41 Labs: Abnormal Lab Results - Last 24 Hours (Table) 09/20/22 Range/Units 08:41 BUN 6 L (7-17) mg/dL Glucose 107 H (74-99) mg/dL Calcium 8.2 L (8.4-10.2) mg/dL Microbiology - Last 24 Hours (Table) 09/14/22 12:55 Blood Culture - Preliminary Blood No Growth after 120 hours 09/14/22 12:40 Blood Culture - Preliminary Blood No Growth after 120 hours
--- NOTE | 2022-09-20 16:00 | P.PN ---
Subjective Progress Note Date: 09/19/22 - History of Present Illness 09/15/22 his is a 52-year-old female who I sent to the emergency room from my office with complaints of right lower quadrant abdominal pain that started yesterday morning. Patient reports that she woke up with right lower quadrant abdominal pain that he continued to increase throughout the day. She reports that the patient did not radiate. She has been nauseous. She's had a fever as high as 101.4 at home. Patient had a computed tomography scan that showed acute appendicitis with rupture. She had leukocytosis, mild tachycardia on admission. Past surgical history includes and uterine ablation. She denies any cardiac history. She was seen by Dr. Joyner in consultation and taken to surgery for appendectomy. 09/18/2022 reports diarrhea this morning. Nausea resolved. Maintained on IV fluids and antibiotics of Flagyl and Zosyn. Incentive spirometer up to 2500. Maintaining O2 sats in the high 90s on room air. Afebrile, normal WBC. Hemoglobin 10.8, platelets 302. Renal function stable. Reports surgical tenderness. Denies chest pain, palpitations or shortness of breath. 09/19/2022 pain controlled. Reports diarrhea, maintained on gentle IV fluid hydration. Continues on Zosyn, Flagyl. T-max 100.2, WBC 3.5. Significant HUAN serosanguineous drainage with leaking around the HUAN drain. Renal function stable Maintaining O2 sats in the high 90s on room air. Pathology pending. Objective - Vital Signs Vital signs: Vital Signs Temp 98.2 F 09/19/22 04:03 Pulse 78 09/19/22 04:03 Resp 16 09/19/22 04:03 BP 107/73 09/19/22 04:03 Pulse Ox 96 09/19/22 04:03 FiO2 Intake & Output 09/18/22 09/19/22 09/19/22 18:59 06:59 18:59 Intake Total 2000 Output Total 150 100 80 Balance -150 1900 -80 Intake: Intake, IV Titration 1500 Amount D5-0.45% NaCl with KCl 1200 20Meq/l 1,000 ml @ 100 mls/hr IV .Q10H [facility] Rx#: [id number] Piperacillin-Tazobactam 3 100 .375 gm In Sodium Chloride 0.9% 100 ml @ 25 mls/hr IVPB Q8HR [facility] Rx# :[id number] metroNIDAZOLE-NS PMX 500 200 mg In Saline 1 100ml.bag @ 100 mls/hr IVPB Q8H [facility] Rx#:[id number] Oral 500 Output: Drainage 150 100 80 Left Abdomen 150 100 80 Other: Voiding Method Toilet Toilet # Voids 2 3 # Bowel Movements 4 1 - Exam GENERAL: Alert and oriented 3, sitting up in bed, no acute distress HEENT: Head is atraumatic, normocephalic. Pupils are equal, round, and reactive to light. Sclerae anicteric. Conjunctivae are clear. Mucus membranes of the mouth are moist. Neck is supple/no JVD. RESPIRATORY: Clear to auscultation. No wheezes, rales, or rhonchi. CARDIOVASCULAR: Regular rate and rhythm. S1 and S2 noted. No systolic or diastolic murmur auscultated. GASTROINTESTINAL: No distention noted. Abdomen soft and round. Positive bowel sounds. Status post surgery, abdominal binder present, HUAN with serosanguineous drainage, leaking around HUAN drain. INTEGUMENTARY: No cyanosis. No jaundice. No rashes noted. No cellulitis noted. EXTREMITIES: 2+ peripheral pulses. No evidence of peripheral edema. No calf tenderness noted. NEUROLOGIC: Cranial nerves II-XII intact. - Labs CBC & Chem 7: 09/19/22 09:06 09/20/22 08:41 Labs: Abnormal Lab Results - Last 24 Hours (Table) 09/19/22 09/19/22 Range/Units 09:06 09:06 WBC 3.5 L (3.8-10.6) k/uL RBC 3.77 L (3.80-5.40) m/uL Hgb 11.3 L (11.4-16.0) gm/dL Lymphocytes # 0.9 L (1.0-4.8) k/uL Sodium 135 L (137-145) mmol/L BUN 6 L (7-17) mg/dL Glucose 125 H (74-99) mg/dL Calcium 7.7 L (8.4-10.2) mg/dL Microbiology - Last 24 Hours (Table) 09/14/22 12:40 Blood Culture - Preliminary Blood No Growth after 96 hours 09/14/22 12:55 Blood Culture - Preliminary Blood No Growth after 96 hours Assessment and Plan Assessment: (1) Acute appendicitis with rupture with possible cecal tumor, status post diagnostic laparoscopy converted to laparotomy with ileocecectomy and open repair of umbilical hernia Current Visit: Yes Status: Acute Code(s): K35.32 - AC APPENDICITIS W PERF, LOC PERITONITIS, & GANGR, W/O ABSCS SNOMED Code(s): 63206927 (2) Anxiety Current Visit: No Status: Acute Code(s): F41.9 - ANXIETY DISORDER, UNSPECIFIED SNOMED Code(s): 98821609 Plan: Continue on current medication regime ,monitoring and symptomatic treatment. Pathology pending , HUAN drain fluid for creatinine pending . Continue on antibiotics. Diet advancement, pain management as per primary. Aggressive pulmonary toileting with incentive spirometer reinforced. Increase am bulation as tolerated. The impression and plan of care has been dictated as directed. : I performed a history and examination of this patient, discussed the same with the dictator. I agree with the dictator's note ,documented as a scribe. Any additional findings or plans will be noted.
--- NOTE | 2022-09-20 16:06 | P.PN ---
Subjective Progress Note Date: 09/20/22 - History of Present Illness 09/15/22 his is a 52-year-old female who I sent to the emergency room from my office with complaints of right lower quadrant abdominal pain that started yesterday morning. Patient reports that she woke up with right lower quadrant abdominal pain that he continued to increase throughout the day. She reports that the patient did not radiate. She has been nauseous. She's had a fever as high as 101.4 at home. Patient had a computed tomography scan that showed acute appendicitis with rupture. She had leukocytosis, mild tachycardia on admission. Past surgical history includes and uterine ablation. She denies any cardiac history. She was seen by Dr. Joyner in consultation and taken to surgery for appendectomy. 09/18/2022 reports diarrhea this morning. Nausea resolved. Maintained on IV fluids and antibiotics of Flagyl and Zosyn. Incentive spirometer up to 2500. Maintaining O2 sats in the high 90s on room air. Afebrile, normal WBC. Hemoglobin 10.8, platelets 302. Renal function stable. Reports surgical tenderness. Denies chest pain, palpitations or shortness of breath. 09/19/2022 pain controlled. Reports diarrhea, maintained on gentle IV fluid hydration. Continues on Zosyn, Flagyl. T-max 100.2, WBC 3.5. Significant HUAN serosanguineous drainage with leaking around the HUAN drain. Renal function stable Maintaining O2 sats in the high 90s on room air. Pathology pending. 09/20/2022 continues on Flagyl and Zosyn, T-max 100.2, renal function stable. Decreased UHAN drainage, HUAN fluid creatinine 0.7. Pain controlled, mild nausea. Denies chest pain, palpitations or shortness of breath. Objective - Vital Signs Vital signs: Vital Signs Temp 98.8 F 09/20/22 14:18 Pulse 87 09/20/22 14:18 Resp 16 09/20/22 14:18 BP 109/77 09/20/22 14:18 Pulse Ox 96 09/20/22 14:18 FiO2 Intake & Output 09/19/22 09/20/22 09/20/22 18:59 06:59 18:59 Intake Total 800 Output Total 140 30 Balance 660 -30 Intake: Intake, IV Titration 800 Amount D5-0.45% NaCl with KCl 400 20Meq/l 1,000 ml @ 100 mls/hr IV .Q10H [facility] Rx#: [id number] Piperacillin-Tazobactam 3 200 .375 gm In Sodium Chloride 0.9% 100 ml @ 25 mls/hr IVPB Q8HR [facility] Rx# :[id number] metroNIDAZOLE-NS PMX 500 200 mg In Saline 1 100ml.bag @ 100 mls/hr IVPB Q8H [facility] Rx#:[id number] Output: Drainage 140 30 Left Abdomen 140 30 Other: Voiding Method Toilet # Voids 2 # Bowel Movements 2 - Exam GENERAL: Alert and oriented 3, sitting up in bed, no acute distress HEENT: Sclerae anicteric. Conjunctivae are clear. MMM. Neck is supple/no JVD. RESPIRATORY: Clear to auscultation. No wheezes, rales, or rhonchi. CARDIOVASCULAR: Regular rate and rhythm. S1 and S2 noted. No systolic or diastolic murmur auscultated. GASTROINTESTINAL: No distention noted. Abdomen soft and round. Positive bowel sounds. Status post surgery, abdominal binder present, HUAN with serosanguineous drainage, leaking around HUAN drain present. INTEGUMENTARY: No cyanosis. No jaundice. No rashes noted. No cellulitis noted. EXTREMITIES: 2+ peripheral pulses. No evidence of peripheral edema. No calf tenderness noted. NEUROLOGIC: Cranial nerves II-XII intact. - Labs CBC & Chem 7: 09/19/22 09:06 09/20/22 08:41 Labs: Abnormal Lab Results - Last 24 Hours (Table) 09/20/22 Range/Units 08:41 BUN 6 L (7-17) mg/dL Glucose 107 H (74-99) mg/dL Calcium 8.2 L (8.4-10.2) mg/dL Microbiology - Last 24 Hours (Table) 09/14/22 12:55 Blood Culture - Final Blood No Growth after 144 hours 09/14/22 12:40 Blood Culture - Final Blood No Growth after 144 hours Assessment and Plan Assessment: (1) Acute appendicitis with rupture with possible cecal tumor, status post diagnostic laparoscopy converted to laparotomy with ileocecectomy and open repair of umbilical hernia Current Visit: Yes Status: Acute Code(s): K35.32 - AC APPENDICITIS W PERF, LOC PERITONITIS, & GANGR, W/O ABSCS SNOMED Code(s): 65573864 (2) Anxiety Current Visit: No Status: Acute Code(s): F41.9 - ANXIETY DISORDER, UNSPECIFIED SNOMED Code(s): 69179656 Plan: Continue on current medication regime ,monitoring and symptomatic treatment. Pathology pending , maintain antibiotics. Pain management as per primary. Aggressive pulmonary toileting with incentive spirometer reinforced. Increase ambulation as tolerated. The impression and plan of care has been dictated as directed. : I performed a history and examination of this patient, discussed the same with the dictator. I agree with the dictator's note ,documented as a scribe. Any additional findings or plans will be noted.
[2022-09-20] MEDS: KETOROLAC 15 MG/ML 1 ML VIAL IVP SCH (16:59)
[2022-09-21] MEDS: PIPERACILLIN-TAZOBACTAM 3.375 GM in SODIUM CHLORIDE 0.9% 100 ML IVPB SCH ×3 (00:37→16:06)
[2022-09-21] MEDS: HEPARIN SODIUM,PORCINE/PF 5,000 UNIT/0.5 ML SYRINGE SQ SCH ×3 (00:37→16:12)
[2022-09-21] MEDS: ONDANSETRON 4 MG/2 ML VIAL IVP PRN (00:37)
[2022-09-21] MEDS: KETOROLAC 15 MG/ML 1 ML VIAL IVP SCH ×4 (00:37→22:49)
[2022-09-21] MEDS: metroNIDAZOLE-NS PMX 500 MG in SALINE 1 100ML.BAG IVPB SCH ×3 (04:17→22:49)
[2022-09-21] MEDS: PANTOPRAZOLE 40 MG/10 ML VIAL IV SCH (08:39)
[2022-09-21 08:45] LABS: HCT 33.8 % (37.2-46.3); HGB 11.2 g/dL (12.0-15.0); MCH 29.2 pg (27.0-32.0); MCHC 33.1 g/dL (32.0-37.0); Mean Platelet Volume 8.6 fL (9.5-12.2); NRBC Per 100 WBC 0 /100 WBCS (0.0-0.0); Platelet Count 345 X 10*3/uL (140-440); RBC 3.84 X 10*6/uL (4.10-5.20); RDW 13.9 % (11.5-14.5); WBC 4.45 X 10*3/uL (4.50-10.00)
--- NOTE | 2022-09-21 09:09 | P.PN ---
Subjective Progress Note Date: 09/21/22 - History of Present Illness 09/15/22 his is a 52-year-old female who I sent to the emergency room from my office with complaints of right lower quadrant abdominal pain that started yesterday morning. Patient reports that she woke up with right lower quadrant abdominal pain that he continued to increase throughout the day. She reports that the patient did not radiate. She has been nauseous. She's had a fever as high as 101.4 at home. Patient had a computed tomography scan that showed acute appendicitis with rupture. She had leukocytosis, mild tachycardia on admission. Past surgical history includes and uterine ablation. She denies any cardiac history. She was seen by Dr. Joyner in consultation and taken to surgery for appendectomy. 09/18/2022 reports diarrhea this morning. Nausea resolved. Maintained on IV fluids and antibiotics of Flagyl and Zosyn. Incentive spirometer up to 2500. Maintaining O2 sats in the high 90s on room air. Afebrile, normal WBC. Hemoglobin 10.8, platelets 302. Renal function stable. Reports surgical tenderness. Denies chest pain, palpitations or shortness of breath. 09/19/2022 pain controlled. Reports diarrhea, maintained on gentle IV fluid hydration. Continues on Zosyn, Flagyl. T-max 100.2, WBC 3.5. Significant HUAN serosanguineous drainage with leaking around the HUAN drain. Renal function stable Maintaining O2 sats in the high 90s on room air. Pathology pending. 09/20/2022 continues on Flagyl and Zosyn, T-max 100.2, renal function stable. Decreased HUAN drainage, HUAN fluid creatinine 0.7. Pain controlled, mild nausea. Denies chest pain, palpitations or shortness of breath. 09/21/2022 . 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 Subserosal abscess with Necrosis, fibrosis and acute serositis consistent with perforated viscus. Benign appendix without histopathologic changes. 5 mesenteric lymph nodes negative for metastasis. Surgical tenderness, pain improved. Minimal nausea. Low fiber Diet intake fair-reports she does not like hospital food. Denies chest pain, palpitations or shortness of breath. Afebrile, normal WBC. Objective - Vital Signs Vital signs: Vital Signs Temp 98.6 F 09/21/22 04:31 Pulse 79 09/21/22 04:31 Resp 16 09/21/22 04:31 BP 102/68 09/21/22 04:31 Pulse Ox 98 09/21/22 04:31 FiO2 Intake & Output 09/20/22 09/21/22 09/21/22 18:59 06:59 18:59 Intake Total 300 300 Output Total 65 Balance 300 235 Intake: Intake, IV Titration 300 300 Amount Piperacillin-Tazobactam 3 200 100 .375 gm In Sodium Chloride 0.9% 100 ml @ 25 mls/hr IVPB Q8HR [facility] Rx# :[id number] metroNIDAZOLE-NS PMX 500 100 200 mg In Saline 1 100ml.bag @ 100 mls/hr IVPB Q8H [facility] Rx#:[id number] Output: Drainage 65 Left Abdomen 65 Other: Voiding Method Toilet - Exam GENERAL: Alert and oriented 3, sitting up in bed, no acute distress HEENT: Sclerae anicteric. Conjunctivae are clear. MMM. Neck is supple/no JVD. RESPIRATORY: Clear to auscultation. No wheezes, rales, or rhonchi. CARDIOVASCULAR: Regular rate and rhythm. S1 and S2 noted. No systolic or diastolic murmur auscultated. GASTROINTESTINAL: No distention noted. Abdomen soft and round. Positive bowel sounds. Status post surgery, abdominal binder present, HUAN with serous drainage. INTEGUMENTARY: No cyanosis. No jaundice. No rashes noted. No cellulitis noted. EXTREMITIES: 2+ peripheral pulses. No evidence of peripheral edema. No calf tenderness noted. NEUROLOGIC: Cranial nerves II-XII intact. - Labs CBC & Chem 7: 09/21/22 05:58 09/20/22 08:41 Labs: Abnormal Lab Results - Last 24 Hours (Table) 09/20/22 09/21/22 Range/Units 08:41 05:58 WBC 4.45 L (4.50-10.00) X 10*3/uL RBC 3.84 L (4.10-5.20) X 10*6/uL Hgb 11.2 L (12.0-15.0) g/dL Hct 33.8 L (37.2-46.3) % MPV 8.6 L (9.5-12.2) fL BUN 6 L (7-17) mg/dL Glucose 107 H (74-99) mg/dL Calcium 8.2 L (8.4-10.2) mg/dL Microbiology - Last 24 Hours (Table) 09/14/22 12:55 Blood Culture - Final Blood No Growth after 144 hours 09/14/22 12:40 Blood Culture - Final Blood No Growth after 144 hours Assessment and Plan Assessment: (1) Acute appendicitis with rupture with possible cecal tumor, status post diagnostic laparoscopy converted to laparotomy with ileocecectomy and open repair of umbilical hernia. 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 Current Visit: Yes Status: Acute Code(s): K35.32 - AC APPENDICITIS W PERF, LOC PERITONITIS, & GANGR, W/O ABSCS SNOMED Code(s): 22648845 (2) Anxiety Current Visit: No Status: Acute Code(s): F41.9 - ANXIETY DISORDER, UNSPECIFIED SNOMED Code(s): 21700977 Plan: Continue on current medication regime ,monitoring and symptomatic treatmen t. Oncology evaluation as per primary . maintain aggressive pulmonary toileting with incentive spirometer reinforced. Medically cleared for discharge. Follow-up with PCP in one week. The impression and plan of care has been dictated as directed. : I performed a history and examination of this patient, discussed the same with the dictator. I agree with the dictator's note ,documented as a scribe. Any additional findings or plans will be noted.
[2022-09-21 09:41] LABS: Basophils # (M) 0 X 10*3/uL (0.00-0.10); Eosinophils # (M) 0.18 X 10*3/uL (0.04-0.35); Lymphocytes # (M) 0.45 X 10*3/uL (0.90-5.00); Metamyelocytes % 2 % (0-0); Monocytes # (M) 0.62 X 10*3/uL (0.20-1.00); Myelocytes % 1 % (0-0); Neutrophils # (M) 3.07 X 10*3/uL (2.00-8.90); Neutrophils % (M) 69 %; RBC Morphology NORMAL
[2022-09-21] MEDS: clonazePAM 1 MG TAB PO PRN (11:35)
[2022-09-21 13:23] VITALS: BMI 31.6
--- NOTE | 2022-09-21 15:11 | P.PN ---
Subjective Progress Note Date: 09/21/22 CHIEF COMPLAINT: Ruptured appendicitis with possible cecal tumor HISTORY OF PRESENT ILLNESS: Patient is status post diagnostic laparoscopy converted to laparotomy with ileocecectomy and open repair of umbilical hernia. Patient initially had sharp right lower quadrant abdominal pain this morning that lasted only a few minutes and went away. Apparently as the day has progressed she has continued to have right lower quadrant pain. She denies any nausea or vomiting. Afebrile. WBC 4.47 Hgb 11.2 platelets 345 stool for C. diff negative. PHYSICAL EXAM: VITAL SIGNS: Reviewed. GENERAL: Well-developed in no acute distress. HEENT: No sclera icterus. Extraocular movements grossly intact. Moist buccal mucosa. Head is atraumatic, normocephalic. ABDOMEN: Soft. Nondistended. Minimal tenderness at incision site. Incisional dressing clean dry and intact. HUAN drain with serous output. Leaking around the HUAN drain. NEUROLOGIC: Alert and oriented. Cranial nerves II through XII grossly intact. ASSESSMENT: 1. Ruptured appendicitis with cecal tumor status post diagnostic laparoscopy converted to laparotomy with ileocecectomy and open repair of umbilical hernia 2. Adenocarcinoma noted on pathology PLAN: -Computed tomography scan abdomen and pelvis ordered to evaluate abdominal pain -Continue to monitor -Continue pain medication as needed -Continue to monitor HUAN drain output -Continue low fiber diet -Continue antibiotics -Encourage patient to ambulate -Encourage patient to use incentive spirometer -GI prophylaxis Protonix and DVT prophylaxis subcu heparin Physician Web Art Director note has been reviewed by physician. Signing provider agrees with the documented findings, assessment, and plan of care. I have personally seen and examined the patient, reviewed the WILDLIFE ECOLOGIST /PAs history, exam and MDM and agree with the assessment and plan as written. Based on total visit time, I have performed more than 50% of the visit. As above: Patient apparently has had some increased sharp pain right lower quadrant today. She is afebrile with stable vital signs. Will order CT with triple contrast to evaluate the anastomotic site. Keep nothing by mouth for now. Objective - Vital Signs Vital signs: Vital Signs Temp 99.0 F 09/21/22 11:46 Pulse 77 09/21/22 11:46 Resp 17 09/21/22 11:46 BP 103/68 09/21/22 11:46 Pulse Ox 97 09/21/22 11:46 FiO2 Intake & Output 1009/21/22 09/21/22 18:59 06:59 18:59 Intake Total 300 300 Output Total 65 Balance 300 235 Weight 94.347 kg Intake: Intake, IV Titration 300 300 Amount Piperacillin-Tazobactam 3 200 100 .375 gm In Sodium Chloride 0.9% 100 ml @ 25 mls/hr IVPB Q8HR [facility] Rx# :[id number] metroNIDAZOLE-NS PMX 500 100 200 mg In Saline 1 100ml.bag @ 100 mls/hr IVPB Q8H [facility] Rx#:[id number] Output: Drainage 65 Left Abdomen 65 Other: Voiding Method Toilet - Labs CBC & Chem 7: 09/21/22 05:58 09/20/22 08:41 Labs: Abnormal Lab Results - Last 24 Hours (Table) 09/21/22 Range/Units 05:58 WBC 4.45 L (4.50-10.00) X 10*3/uL RBC 3.84 L (4.10-5.20) X 10*6/uL Hgb 11.2 L (12.0-15.0) g/dL Hct 33.8 L (37.2-46.3) % MPV 8.6 L (9.5-12.2) fL Metamyelocytes % 2 H (0-0) % Myelocytes % 1 H (0-0) % Lymphocytes # (Manual) 0.45 L (0.90-5.00) X 10*3/uL Microbiology - Last 24 Hours (Table) 09/14/22 12:55 Blood Culture - Final Blood No Growth after 144 hours 09/14/22 12:40 Blood Culture - Final Blood No Growth after 144 hours
[2022-09-21] MEDS ORDERED: IOPAMIDOL CONTRAST (ORAL USE) VIAL PO PRN (15:13)
[2022-09-21] MEDS: HYDROmorphone 0.5 MG/0.5 ML SYRINGE IVP PRN (16:15)
--- NOTE | 2022-09-21 19:10 | CT ---
EXAMINATION TYPE: CT ABDOMEN PELVIS W ORAL, RECTAL, AND IV CONTRAST DATE OF EXAM: 09/21/2022 HISTORY: abdominal tenderness TECHNIQUE: Following delivery of oral and rectal contrast, pelvic CT imaging was obtained during the portal venous phase contrast enhancement. Following a 4 minute delay for the urogram phase, abdominop elvic CT was repeated. Automated Exposure Control for Dose Reduction was Utilized. CT DLP: 2382mGycm IV contrast: 100 mL Isovue 300. COMPARISON: CT 09/14/2022 FINDINGS: LUNG BASES: No acute findings. LIVER/GB: Liver cysts. No other findings. PANCREAS: No significant abnormality is seen. SPLEEN: No significant abnormality is seen. ADRENALS: No significant abnormality is seen. KIDNEYS: No significant abnormality is seen. BOWEL: Small bowel is diffusely dilated, with some loops reaching 5 cm caliber. There are some loops of distal ileum which have normal caliber, they are distended with fluid but are less than 3 cm calib er. There is no small bowel mural thickening or mesenteric edematous changes. No pneumatosis or pneum operitoneum. The colon is distended with contrast. Sigmoid diverticulosis noted. Ileocolic trey ar e appreciated. There is no evidence of extraluminal contrast extravasation. No focal fluid or gas col lection. PERITONEAL CAVITY: Minimal fluid seen dependently within pelvis. No pneumoperitoneum EXTRAPERITONEAL SPACES: No greater than 1cm abdominal or pelvic lymph nodes. OSSEOUS STRUCTURES: No significant abnormality is seen. VASCULAR: No acute vascular findings. Flattened IVC noted. Results discussed with ordering physician. IMPRESSION: 1. Partial small bowel obstruction pattern. 2. Flattened IVC noted, can correlate with a clinical diagnosis of relative hypovolemia.
[2022-09-22] MEDS: PIPERACILLIN-TAZOBACTAM 3.375 GM in SODIUM CHLORIDE 0.9% 100 ML IVPB SCH ×4 (00:46→23:41)
[2022-09-22] MEDS: KETOROLAC 15 MG/ML 1 ML VIAL IVP SCH ×5 (00:46→23:43)
[2022-09-22] MEDS: HEPARIN SODIUM,PORCINE/PF 5,000 UNIT/0.5 ML SYRINGE SQ SCH ×4 (00:49→23:43)
[2022-09-22] MEDS: metroNIDAZOLE-NS PMX 500 MG in SALINE 1 100ML.BAG IVPB SCH ×3 (04:20→19:39)
[2022-09-22] MEDS ORDERED: BENZOCAINE SPRAY 1 CAN MUCOUS MEM PRN (08:41)
[2022-09-22] MEDS: PANTOPRAZOLE 40 MG/10 ML VIAL IV SCH (08:52)
--- NOTE | 2022-09-22 11:06 | P.PN ---
Subjective Progress Note Date: 09/22/22 CHIEF COMPLAINT: Ruptured appendicitis with possible cecal tumor HISTORY OF PRESENT ILLNESS: Patient is status post diagnostic laparoscopy converted to laparotomy with ileocecectomy and open repair of umbilical hernia. Patient had computed tomography scan abdomen and pelvis showing a partially small bowel structure pattern. NG tube was placed. Patient had 760 mL bilious output through the NG tube through the night. There is currently 300 mL bilious output. She does report improvement of her abdominal pain since NG tube was placed. She continues to have diarrhea. Denies any flatus. She's complaining of some throat irritation from the NG tube. Low-grade temp 99.7. no new labs. HUAN drain with 10 mL serous output PHYSICAL EXAM: VITAL SIGNS: Reviewed. GENERAL: Well-developed in no acute distress. HEENT: No sclera icterus. Extraocular movements grossly intact. Moist buccal mucosa. Head is atraumatic, normocephalic. ABDOMEN: Soft. Nondistended. Tender at incision sites. Incisional dressing clean dry and intact for midline incision. HUAN drain with serous output. Leaking around the HUAN drain. NEUROLOGIC: Alert and oriented. Cranial nerves II through XII grossly intact. ASSESSMENT: 1. Ruptured appendicitis with cecal tumor status post diagnostic laparoscopy converted to laparotomy with ileocecectomy and open repair of umbilical hernia 2. Adenocarcinoma noted on pathology 3. Partial small bowel obstruction PLAN: -Continue NG tube for decompression -Keep patient nothing by mouth -Medicine service has ordered Hurricaine spray for throat irritation -Continue to monitor -Continue pain medication as needed -Continue antibiotics -Encourage patient to ambulate -Encourage patient to use incentive spirometer -GI prophylaxis Protonix and DVT prophylaxis subcu heparin Physician Food And Beverage Attendant note has been reviewed by physician. Signing provider agrees with the documented findings, assessment, and plan of care. I have personally seen and examined the patient, reviewed the TELECOMMUNICATOR /PAs history, exam and MDM and agree with the assessment and plan as written. Based on total visit time, I have performed more than 50% of the visit. As above: Patient feels better after nasogastric tube placement last night. Abdomen is less bloated she says. No crampy abdominal pain at this time. Patient is complaining of a sore throat now. She has had 2 bowel movements since the nasogastric tube was placed. Still loose consistency. Continue NG tube today. If doing well and NG output is low we'll consider removal of nasogastric tube tomorrow with slow reinitiation of diet. CAT scan films again discussed with patient and actually showed to her and her mother at the bedside. Continue antibiotics. Keep drain in place for now. Objective - Vital Signs Vital signs: Vital Signs Temp 98.5 F 09/22/22 04:27 Pulse 82 09/22/22 04:27 Resp 18 09/22/22 04:27 BP 109/74 09/22/22 04:27 Pulse Ox 96 09/22/22 04:27 FiO2 Intake & Output 09/21/22 09/22/22 09/22/22 18:59 06:59 18:59 Intake Total 400 Output Total 90 760 Balance 310 -760 Weight 94.347 kg Intake: Intake, IV Titration 400 Amount Piperacillin-Tazobactam 3 200 .375 gm In Sodium Chloride 0.9% 100 ml @ 25 mls/hr IVPB Q8HR [facility] Rx# :[id number] metroNIDAZOLE-NS PMX 500 200 mg In Saline 1 100ml.bag @ 100 mls/hr IVPB Q8H [facility] Rx#:[id number] Output: Drainage 90 760 Left Abdomen 90 10 Nasogastic Tube 750 Other: Voiding Method Toilet - Labs CBC & Chem 7: 09/21/22 05:58 09/20/22 08:41
--- NOTE | 2022-09-22 12:23 | P.PN ---
Subjective Progress Note Date: 09/22/22 - History of Present Illness 09/15/22 his is a 52-year-old female who I sent to the emergency room from my office with complaints of right lower quadrant abdominal pain that started yesterday morning. Patient reports that she woke up with right lower quadrant abdominal pain that he continued to increase throughout the day. She reports that the patient did not radiate. She has been nauseous. She's had a fever as high as 101.4 at home. Patient had a computed tomography scan that showed acute appendicitis with rupture. She had leukocytosis, mild tachycardia on admission. Past surgical history includes and uterine ablation. She denies any cardiac history. She was seen by Dr. Joyner in consultation and taken to surgery for appendectomy. 09/18/2022 reports diarrhea this morning. Nausea resolved. Maintained on IV fluids and antibiotics of Flagyl and Zosyn. Incentive spirometer up to 2500. Maintaining O2 sats in the high 90s on room air. Afebrile, normal WBC. Hemoglobin 10.8, platelets 302. Renal function stable. Reports surgical tenderness. Denies chest pain, palpitations or shortness of breath. 09/19/2022 pain controlled. Reports diarrhea, maintained on gentle IV fluid hydration. Continues on Zosyn, Flagyl. T-max 100.2, WBC 3.5. Significant HUAN serosanguineous drainage with leaking around the HUAN drain. Renal function stable Maintaining O2 sats in the high 90s on room air. Pathology pending. 09/20/2022 continues on Flagyl and Zosyn, T-max 100.2, renal function stable. Decreased HUAN drainage, HUAN fluid creatinine 0.7. Pain controlled, mild nausea. Denies chest pain, palpitations or shortness of breath. 09/21/2022 . 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 Subserosal abscess with Necrosis, fibrosis and acute serositis consistent with perforated viscus. Benign appendix without histopathologic changes. 5 mesenteric lymph nodes negative for metastasis. Surgical tenderness, pain improved. Minimal nausea. Low fiber Diet intake fair-reports she does not like hospital food. Denies chest pain, palpitations or shortness of breath. Afebrile, normal WBC. 09/22/2022 maintained on IV fluid hydration, Zosyn and Flagyl .Yesterday developed right lower quadrant tenderness, CT abdomen/pelvis performed,reporting partial small bowel obstruction, flattened IVC and NG tube placed. T-max 99.7, WBC 4.45. Reported continued diarrhea this morning. Negative for C. difficile colitis. Abdominal pain improved. Objective - Vital Signs Vital signs: Vital Signs Temp 99 F 09/22/22 11:46 Pulse 81 09/22/22 11:46 Resp 16 09/22/22 11:46 BP 113/75 09/22/22 11:46 Pulse Ox 94 L 09/22/22 11:46 FiO2 Intake & Output 09/21/22 09/22/22 09/22/22 18:59 06:59 18:59 Intake Total 400 Output Total 90 760 Balance 310 -760 Weight 94.347 kg Intake: Intake, IV Titration 400 Amount Piperacillin-Tazobactam 3 200 .375 gm In Sodium Chloride 0.9% 100 ml @ 25 mls/hr IVPB Q8HR [facility] Rx# :[id number] metroNIDAZOLE-NS PMX 500 200 mg In Saline 1 100ml.bag @ 100 mls/hr IVPB Q8H [facility] Rx#:[id number] Output: Drainage 90 760 Left Abdomen 90 10 Nasogastic Tube 750 Other: Voiding Method Toilet Toilet - Exam GENERAL: Alert and oriented 3, sitting up in bed, no acute distress HEENT: Sclerae anicteric. Conjunctivae are clear. NG tube with bilious drainage Neck is supple/no JVD. RESPIRATORY: Clear to auscultation. No wheezes, rales, or rhonchi. CARDIOVASCULAR: Regular rate and rhythm. S1 and S2 noted. No systolic or diastolic murmur auscultated. GASTROINTESTINAL: Positive distention noted. Abdomen soft and round. Hypoactive bowel sounds. Status post surgery, abdominal binder present, HUAN with serous drainage. INTEGUMENTARY: No cyanosis. No jaundice. No rashes noted. No cellulitis noted. EXTREMITIES: 2+ peripheral pulses. No evidence of peripheral edema. No calf tenderness noted. NEUROLOGIC: Cranial nerves II-XII intact. - Labs CBC & Chem 7: 09/21/22 05:58 09/20/22 08:41 Assessment and Plan Assessment: (1) Acute appendicitis with rupture with possible cecal tumor, status post diagnostic laparoscopy converted to laparotomy with ileocecectomy and open repair of umbilical hernia. 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 Current Visit: Yes Status: Acute Code(s): K35.32 - AC APPENDICITIS W PERF, L OC PERITONITIS, & GANGR, W/O ABSCS SNOMED Code(s): 22065574 (2) Anxiety Current Visit: No Status: Acute Code(s): F41.9 - ANXIETY DISORDER, UNSPECIFIED SNOMED Code(s): 66836039 (3) Partial Small Bowel Obstruction Plan: Continue on current medication regime ,monitoring and symptomatic treatment. Cetacaine spray ordered for irritated throat secondary to NG tube .NPO, NG tube maintenance as per surgery. Antibiotics, pain management, IV fluid hydration. Increase ambulation as tolerated. Continue with aggressive pulmonary toileting with incentive spirometer reinforced. The impression and plan of care has been dictated as directed. : I performed a history and examination of this patient, discussed the same with the dictator. I agree with the dictator's note ,documented as a scribe. Any additional findings or plans will be noted.
[2022-09-22] MEDS: SODIUM CHLORIDE 0.9% 1,000 ML IV SCH ×2 (12:24→23:41)
[2022-09-22] MEDS: clonazePAM 1 MG TAB PO PRN (12:32)
[2022-09-23] MEDS: metroNIDAZOLE-NS PMX 500 MG in SALINE 1 100ML.BAG IVPB SCH ×3 (03:34→19:34)
[2022-09-23] MEDS: KETOROLAC 15 MG/ML 1 ML VIAL IVP SCH ×2 (05:33→13:41)
[2022-09-23 06:18] LABS: Basophils % (A) 1 %; Eosinophils # (A) 0.1 k/uL (0-0.7); Eosinophils % (A) 2 %; HCT 37.5 % (34.0-46.0); HGB 11.8 gm/dL (11.4-16.0); Lymphocytes # (A) 1.2 k/uL (1.0-4.8); Lymphocytes % (A) 18 %; MCH 28.7 pg (25.0-35.0); MCHC 31.6 g/dL (31.0-37.0); MCV 90.8 fL (80.0-100.0); Mean Platelet Volume 8.1; Monocytes # (A) 0.5 k/uL (0-1.0); Monocytes % (A) 7 %; Neutrophils # (A) 4.7 k/uL (1.3-7.7); Neutrophils % (A) 70 %; Platelet Count 386 k/uL (150-450); RBC 4.13 m/uL (3.80-5.40); RDW 13.8 % (11.5-15.5); WBC 6.6 k/uL (3.8-10.6)
[2022-09-23 06:44] LABS: African American GFR (CKD) >90 (>60 ml/min/1.73 sqM); Anion Gap 14 mmol/L; Blood Urea Nitrogen 15 mg/dL (7-17); Calcium 7.8 mg/dL (8.4-10.2); Carbon Dioxide 19 mmol/L (22-30); Chloride 106 mmol/L (98-107); Glucose 66 mg/dL (74-99); Non-African American GFR(CKD) >90 (>60 ml/min/1.73 sqM); Potassium 4.1 mmol/L (3.5-5.1); Sodium 139 mmol/L (137-145)
[2022-09-23] MEDS: HEPARIN SODIUM,PORCINE/PF 5,000 UNIT/0.5 ML SYRINGE SQ SCH ×3 (09:23→23:48)
[2022-09-23] MEDS: PANTOPRAZOLE 40 MG/10 ML VIAL IV SCH (09:23)
[2022-09-23] MEDS: PIPERACILLIN-TAZOBACTAM 3.375 GM in SODIUM CHLORIDE 0.9% 100 ML IVPB SCH ×3 (09:24→23:47)
--- NOTE | 2022-09-23 09:26 | P.PN ---
Progress Note - Text Progress Note Date: 09/23/22 Patient states she feels better. She's requesting her nasogastric tube to be removed. On exam vital signs are stable. Abdomen soft. Incision is clean. Resolving ileus. Patient will have her nasogastric tube removed. She'll start on clear liquids
--- NOTE | 2022-09-23 14:52 | P.PN ---
Subjective Progress Note Date: 09/23/22 This is a 52 year old female patient of Dr. Herndon who is admitted for right lower quadrant abdominal pain and was found to have acute appendicitis with rupture. Patient is status post diagnostic laproscopy converted to laporotomy with ileocecectomy and open repair of umbilical hernia. Pathology has found i nvasive well to moderately differentiated adenocarcinoma, margins negative, like mesenteric lymph nodes negative for metastasis. Postoperatively patient had partial small bowel obstruction pattern with flattened IVC. NG tube was inserted for management. Patient had NG tube removed today and has been started on clear liquid diet. HUAN drain remains in place with sanguineous drainage present. Abdominal binder in place. Overall feeling better. Labs are showing improvement, white count today 6.6., hgb 11.8. Afebrile, blood pressure 122/81 Review of Systems Constitutional: Denied any fatigue denied any fever. Cardio vascular: denied any chest pain, palpitations Gastrointestinal: denied any nausea, vomiting, diarrhea Pulmonary: Denied any shortness of breath cough Neurologic denied any new focal deficits All inpatient medications were reviewed and appropriate changes in these medications as dictated in the interval history and assessment and plan. PHYSICAL EXAMINATION: GENERAL: The patient is alert and oriented x3, not in any acute distress. Well developed, well nourished. HEENT: Pupils are round and equally reacting to light. EOMI. No scleral icterus. No conjunctival pallor. Normocephalic, atraumatic. No pharyngeal erythema. No thyromegaly. CARDIOVASCULAR: S1 and S2 present. No murmurs, rubs, or gallops. PULMONARY: Chest is clear to auscultation, no wheezing or crackles. ABDOMEN: Soft, tender, nondistended, normoactive bowel sounds. No palpable organomegaly. Abdominal binder in place. HUAN drain in place. MUSCULOSKELETAL: No joint swelling or deformity. EXTREMITIES: No cyanosis, clubbing, or pedal edema. NEUROLOGICAL: Gross neurological examination did not reveal any focal deficits. SKIN: No rashes. Assessment and Plan Abdominal pain secondary to acute appendicitis with rupture Diagnostic laproscopy converted to laporotomy with ileocecectomy and open repair of umbilical hernia with invasive well to moderately differentiated adenocarcinoma on pathology. Margins negative. Postoperative bowel obstruction with conservative management NG tube has been removed today and patient is started on diet. Anxiety History tobacco use GI Prophylaxis DVT Prophylaxis as per primary Full Code The impression and plan of care has been dictated by Syeda Higgins Nurse Practitioner as directed. Dr. Ana MD I have performed a history and physical examination and medical decision making of this patient, discussed the same with the dictator, and agree with the dictators assessment and plan as written, documented as a scribe. Based on total visit time, I have performed more than 50% of this visit. Objective - Vital Signs Vital signs: Vital Signs Temp 98.1 F 09/23/22 12:16 Pulse 80 09/23/22 12:16 Resp 18 09/23/22 12:16 BP 122/81 09/23/22 12:16 Pulse Ox 98 09/23/22 12:16 FiO2 Intake & Output 09/22/22 09/23/22 09/23/22 18:59 06:59 18:59 Intake Total 1000 1230 Output Total 610 460 115 Balance 390 770 -115 Intake: Intake, IV Titration 1000 1200 Amount Piperacillin-Tazobactam 3 200 100 .375 gm In Sodium Chloride 0.9% 100 ml @ 25 mls/hr IVPB Q8HR [facility] Rx# :[id number] Sodium Chloride 0.9% 1, 600 900 000 ml @ 75 mls/hr IV . [id number] [facility] Rx#:[id number] metroNIDAZOLE-NS PMX 500 200 200 mg In Saline 1 100ml.bag @ 100 mls/hr IVPB Q8H [facility] Rx#:[id number] Oral 30 Output: Gastric Drainage 600 450 Drainage 10 10 15 Left Abdomen 10 10 15 Urine 100 Other: Voiding Method Toilet Toilet Toilet # Voids 3 1 1 # Bowel Movements 2 - Labs CBC & Chem 7: 09/23/22 05:41 09/23/22 05:41 Labs: Abnormal Lab Results - Last 24 Hours (Table) 09/23/22 Range/Units 05:41 Carbon Dioxide 19 L (22-30) mmol/L Glucose 66 L (74-99) mg/dL Calcium 7.8 L (8.4-10.2) mg/dL Assessment and Plan Time with Patient: Less than 30
[2022-09-23] MEDS: SODIUM CHLORIDE 0.9% 1,000 ML IV SCH (16:08)
[2022-09-23] MEDS: HYDROcodone/APAP 5-325MG 1 EACH TAB PO PRN (19:39)
[2022-09-23] MEDS: clonazePAM 1 MG TAB PO PRN (19:39)
[2022-09-24] MEDS: metroNIDAZOLE-NS PMX 500 MG in SALINE 1 100ML.BAG IVPB SCH ×3 (04:11→21:06)
[2022-09-24] MEDS: SODIUM CHLORIDE 0.9% 1,000 ML IV SCH (04:41)
[2022-09-24] MEDS: HEPARIN SODIUM,PORCINE/PF 5,000 UNIT/0.5 ML SYRINGE SQ SCH ×2 (09:03→15:47)
[2022-09-24] MEDS: PIPERACILLIN-TAZOBACTAM 3.375 GM in SODIUM CHLORIDE 0.9% 100 ML IVPB SCH ×2 (09:03→16:11)
[2022-09-24] MEDS: PANTOPRAZOLE 40 MG/10 ML VIAL IV SCH (09:04)
--- NOTE | 2022-09-24 13:53 | P.PN ---
Progress Note - Text Progress Note Date: 09/24/22 Patient feels better. She is tolerating her liquid diet. She is requesting Morty. On exam vital signs are stable. Abdomen soft. Incisions clean dry tach. Status post limited right colectomy for appendicitis/cecal tumor. Patient will have her diet advanced to regular diet. Anticipate discharge home tomorrow.
--- NOTE | 2022-09-24 13:56 | P.PN ---
Subjective Progress Note Date: 09/24/22 This is a 52 year old female patient of Dr. Herndon who is admitted for right lower quadrant abdominal pain and was found to have acute appendicitis with rupture. Patient is status post diagnostic laproscopy converted to laporotomy with ileocecectomy and open repair of umbilical hernia. Pathology has found i nvasive well to moderately differentiated adenocarcinoma, margins negative, like mesenteric lymph nodes negative for metastasis. Postoperatively patient had partial small bowel obstruction pattern with flattened IVC. NG tube was inserted for management. Patient had NG tube removed today and has been started on clear liquid diet. HUAN drain remains in place with sanguineous drainage present. Abdominal binder in place. Overall feeling better. Labs are showing improvement, white count today 6.6., hgb 11.8. Afebrile, blood pressure 122/81 09/24/2022 Patient sitting up in chair today. She will be advanced to regular diet. No acute events overnight. Continues with loose stools. She is afebrile, heart rate 71, blood pressure 100/64, 99% room air. She continues on IV metronidazole and also continues on IV piperacillin. IV fluids can be stopped if patient is tolerating diet. Possible discharge tomorrow. Dr. Herndon will resume care in the morning. Review of Systems Constitutional: Denied any fatigue denied any fever. Cardio vascular: denied any chest pain, palpitations Gastrointestinal: denied any nausea, vomiting, diarrhea Post surgical abdomen. Pulmonary: Denied any shortness of breath cough Neurologic denied any new focal deficits All inpatient medications were reviewed and appropriate changes in these medications as dictated in the interval history and assessment and plan. PHYSICAL EXAMINATION: GENERAL: The patient is alert and oriented x3, not in any acute distress. Well developed, well nourished. HEENT: Pupils are round and equally reacting to light. EOMI. No scleral icterus. No conjunctival pallor. Normocephalic, atraumatic. No pharyngeal erythema. No thyromegaly. CARDIOVASCULAR: S1 and S2 present. No murmurs, rubs, or gallops. PULMONARY: Chest is clear to auscultation, no wheezing or crackles. ABDOMEN: Soft, tender, nondistended, normoactive bowel sounds. No palpable organomegaly. Abdominal binder in place. HUAN drain in place. MUSCULOSKELETAL: No joint swelling or deformity. EXTREMITIES: No cyanosis, clubbing, or pedal edema. NEUROLOGICAL: Gross neurological examination did not reveal any focal deficits. SKIN: No rashes. Assessment and Plan Abdominal pain secondary to acute appendicitis with rupture Diagnostic laproscopy converted to laporotomy with ileocecectomy and open repair of umbilical hernia with invasive well to moderately differentiated adenocarcinoma on pathology. Margins negative. Postoperative bowel obstruction with conservative management NG tube has been removed and patient advanced to regular diet. Anxiety History tobacco use GI Prophylaxis DVT Prophylaxis as per primary Full Code The impression and plan of care has been dictated by Syeda Higgins, Nurse Practitioner as directed. Dr. Ana MD I have performed a history and physical examination and medical decision making of this patient, discussed the same with the dictator, and agree with the dictators assessment and plan as written, documented as a scribe. Based on total visit time, I have performed more than 50% of this visit. Objective - Vital Signs Vital signs: Vital Signs Temp 98.1 F 09/24/22 11:21 Pulse 71 09/24/22 11:21 Resp 18 09/24/22 11:21 BP 100/64 09/24/22 11:21 Pulse Ox 99 09/24/22 11:21 FiO2 Intake & Output 09/23/22 09/24/22 09/24/22 18:59 06:59 18:59 Intake Total 1200 2100 Output Total 115 0 6 Balance 1085 2100 -6 Intake: Intake, IV Titration 900 Amount Piperacillin-Tazobactam 3 100 .375 gm In Sodium Chloride 0.9% 100 ml @ 25 mls/hr IVPB Q8HR [facility] Rx# :[id number] Sodium Chloride 0.9% 1, 600 000 ml @ 75 mls/hr IV . [id number] [facility] Rx#:[id number] metroNIDAZOLE-NS PMX 500 200 mg In Saline 1 100ml.bag @ 100 mls/hr IVPB Q8H [facility] Rx#:[id number] Oral 1200 1200 Output: Drainage 15 0 6 Left Abdomen 15 0 6 Urine 100 Other: Voiding Method Toilet Toilet Toilet # Voids 1 1 - Labs CBC & Chem 7: 09/23/22 05:41 09/23/22 05:41 Assessment and Plan Time with Patient: Less than 30
[2022-09-24] MEDS: clonazePAM 1 MG TAB PO PRN (21:07)
[2022-09-25] MEDS: HEPARIN SODIUM,PORCINE/PF 5,000 UNIT/0.5 ML SYRINGE SQ SCH ×2 (00:24→08:34)
[2022-09-25] MEDS: PIPERACILLIN-TAZOBACTAM 3.375 GM in SODIUM CHLORIDE 0.9% 100 ML IVPB SCH ×2 (00:24→08:34)
[2022-09-25] MEDS: metroNIDAZOLE-NS PMX 500 MG in SALINE 1 100ML.BAG IVPB SCH ×2 (04:51→12:01)
[2022-09-25] MEDS: SODIUM CHLORIDE 0.9% 1,000 ML IV SCH (06:02)
[2022-09-25] MEDS: PANTOPRAZOLE 40 MG/10 ML VIAL IV SCH (08:34)
--- NOTE | 2022-09-25 10:34 | P.PN ---
Subjective Progress Note Date: 09/25/22 - History of Present Illness 09/15/22 his is a 52-year-old female who I sent to the emergency room from my office with complaints of right lower quadrant abdominal pain that started yesterday morning. Patient reports that she woke up with right lower quadrant abdominal pain that he continued to increase throughout the day. She reports that the patient did not radiate. She has been nauseous. She's had a fever as high as 101.4 at home. Patient had a computed tomography scan that showed acute appendicitis with rupture. She had leukocytosis, mild tachycardia on admission. Past surgical history includes and uterine ablation. She denies any cardiac history. She was seen by Dr. Joynre in consultation and taken to surgery for appendectomy. 09/18/2022 reports diarrhea this morning. Nausea resolved. Maintained on IV fluids and antibiotics of Flagyl and Zosyn. Incentive spirometer up to 2500. Maintaining O2 sats in the high 90s on room air. Afebrile, normal WBC. Hemoglobin 10.8, platelets 302. Renal function stable. Reports surgical tenderness. Denies chest pain, palpitations or shortness of breath. 09/19/2022 pain controlled. Reports diarrhea, maintained on gentle IV fluid hydration. Continues on Zosyn, Flagyl. T-max 100.2, WBC 3.5. Significant HUAN serosanguineous drainage with leaking around the HUAN drain. Renal function stable Maintaining O2 sats in the high 90s on room air. Pathology pending. 09/20/2022 continues on Flagyl and Zosyn, T-max 100.2, renal function stable. Decreased HUAN drainage, HUAN fluid creatinine 0.7. Pain controlled, mild nausea. Denies chest pain, palpitations or shortness of breath. 09/21/2022 . 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 Subserosal abscess with Necrosis, fibrosis and acute serositis consistent with perforated viscus. Benign appendix without histopathologic changes. 5 mesenteric lymph nodes negative for metastasis. Surgical tenderness, pain improved. Minimal nausea. Low fiber Diet intake fair-reports she does not like hospital food. Denies chest pain, palpitations or shortness of breath. Afebrile, normal WBC. 09/22/2022 maintained on IV fluid hydration, Zosyn and Flagyl .Yesterday developed right lower quadrant tenderness, CT abdomen/pelvis performed,reporting partial small bowel obstruction, flattened IVC and NG tube placed. T-max 99.7, WBC 4.45. Reported continued diarrhea this morning. Negative for C. difficile colitis. Abdominal pain improved. 09/25/2022 NG tube discontinued over the weekend, diet advanced to a regular, tolerating well. Denies nausea vomiting, positive loose stools. Pain co ntrolled. Denies chest pain, palpitations or shortness of breath. Maintained on Zosyn and Flagyl .Afebrile, normal WBC. Objective - Vital Signs Vital signs: Vital Signs Temp 98.3 F 09/25/22 05:00 Pulse 71 09/25/22 05:00 Resp 16 09/25/22 05:00 BP 116/77 09/25/22 05:00 Pulse Ox 98 09/25/22 05:00 FiO2 Intake & Output 09/24/22 09/25/22 09/25/22 18:59 06:59 18:59 Intake Total 240 590 Output Total 9 40 Balance 231 550 Intake: Oral 240 590 Output: Drainage 9 40 Left Abdomen 9 40 Other: Voiding Method Toilet Toilet # Voids 3 2 - Exam GENERAL: Alert and oriented 3, sitting up in bed, no acute distress HEENT: Sclerae anicteric. Conjunctivae are clear. MMM. Neck is supple/no JVD. RESPIRATORY: Clear to auscultation. No wheezes, rales, or rhonchi. CARDIOVASCULAR: Regular rate and rhythm. S1 and S2 noted. No systolic or diastolic murmur auscultated. GASTROINTESTINAL: Abdomen soft and round, nondistended. Positive bowel sounds. Status post surgery, abdominal binder present, HUAN drain. INTEGUMENTARY: No cyanosis. No jaundice. No rashes noted. No cellulitis noted. EXTREMITIES: 2+ peripheral pulses. No evidence of peripheral edema. No calf tenderness noted. NEUROLOGIC: Cranial nerves II-XII intact. - Labs CBC & Chem 7: 09/23/22 05:41 09/23/22 05:41 Assessment and Plan Assessment: (1) Acute appendicitis with rupture with possible cecal tumor, status post diagnostic laparoscopy converted to laparotomy with ileocecectomy and open repair of umbilical hernia. 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 Current Visit: Yes Status: Acute Code(s): K35.32 - AC APPENDICITIS W PERF, LOC PERITONITIS, & GANGR, W/O ABSCS SNOMED Code(s): 89215542 (2) Anxiety Current Visit: No Status: Acute Code(s): F41.9 - ANXIETY DISORDER, UNSPECIFIED SNOMED Code(s): 77917258 (3) Postoperative Partial Small Bowel Obstruction, conservative management, status post NG, improved. Plan: Continue on current medication regime ,monitoring and symptomatic treatment. Medically cleared for discharge. Follow-up with PCP in 2 weeks after follow-up with surgery.Increase ambulation as tolerated. Continue with aggressive pulmonary toileting with incentive spirometer reinforced. The impression and plan of care has been dictated as directed. : I performed a history and examination of this patient, discussed the same with the dictator. I agree with the dictator's note ,documented as a scribe. Any additional findings or plans will be noted.
--- NOTE | 2022-09-25 11:04 | P.DS ---
Providers Date of admission: 09/14/22 12:36 Expected date of discharge: 09/25/22 Attending physician: Rodger Morse Consults: 09/14/22 19:37 Consult Physician Routine Consulting Provider: Moises Herndon Consult Reason/Comments: Medical management Do you want consulting provider notified?: Yes Primary care physician: Moises Herndon Hospital Course: Discharge diagnosis 1. Ruptured appendicitis with cecal tumor status post diagnostic laparoscopy converted to laparotomy with ileocecectomy and open repair of umbilical hernia 2. Adenocarcinoma noted on pathology 3. Partial small bowel obstruction managed conservatively Hospital course This is a 52-year-old female who presented to the ER with complaints of right lower quadrant abdominal pain with fever. Patient had a computed tomography scan that showed acute appendicitis with rupture. Patient is status post diagnostic laparoscopy converted to laparotomy with ileocecectomy and open repair of umbilical hernia. Patient's pathology results did show adenocarcinoma. Patient did develop a partial small bowel obstruction. She required NG tube placed. She was managed conservatively. She has tolerated advancement of diet. Her pain is controlled. She is tolerating diet. She's afebrile. She has been up and ambulating. She is having bowel movements. Midline incision site clean dry and intact. She does have some serous drainage leaking noted at the HUAN drain site. Decreased output through the HUAN drain. HUAN drain will be discontinued prior to discharge. Patient is stable for discharge. Please refer to chart for any further details. Physician Continuous Pillowcase Cutter note has been reviewed by physician. Signing provider agrees with the documented findings, assessment, and plan of care. Patient Condition at Discharge: Stable Plan - Discharge Summary New Discharge Prescriptions: New HYDROcodone/APAP 5-325MG [[place] 5-325] 1 tab PO Q6HR PRN 3 Days #12 tab PRN Reason: Pain Continue clonazePAM [KlonoPIN] 1 mg PO BID PRN PRN Reason: Anxiety Discharge Medication List clonazePAM [KlonoPIN] 1 mg PO BID PRN 01/25/16 [History] HYDROcodone/APAP 5-325MG [[place] 5-325] 1 tab PO Q6HR PRN 3 Days #12 tab 09/25/22 [Rx] Follow up Appointment(s)/Referral(s): Rodger Morse MD [Medical Doctor] - 1 Week Jarrell Gamez MD [STAFF PHYSICIAN] - 1 Week Yanick,Moises, DO [Primary Care Provider] - 2 Weeks Activity/Diet/Wound Care/Special Instructions: Please send home with wound care supplies at D/C. Thank you [employer] IS Q1H wa X [address] while taking [place] No lifting over 10 pounds You may shower. No soaking or tub baths for 2 weeks Very light activity until you are reevaluated at your follow up appointment with your surgeon Discharge Disposition: HOME WITH HOME HEALTH SERVICES
[2022-09-25 11:51] VITALS: BP 105/71; PULSE 78; RESP 17; TEMP 98.4
--- NOTE | 2022-09-28 08:24 | CDI ---
Documentation Clarification Form Date: 09/28/2022 07:54:20 AM From: Kim Montes CCS, CCDS Admit Date: 09/14/2022 12:36:00 PM Patient Name: Shelia Mcdonnell Visit Number: [id number] Discharge Date: 09/25/2022 03:47:00 PM ATTENTION: The Clinical Documentation Specialists (CDI) and [facility] Coding Staff appreciate your assistance in clarifying documentation. Please respond to the clarification below the line at the bottom and electronically sign. The CDI & [facility] Coding staff will review the response and follow-up if needed. Please note: Queries are made part of the Legal Health Record. If you have any questions, please contact the author of this message via ITS. Dr. Rodger Morse: Postoperative Bowel Obstruction is documented in the Medical Management Progress Notes beginning on 09/23 through 09/25 status post a Diagnostic Laparoscopy converted to laparotomy with Ileocecectomy with Open Repair of Umbilical hernia on 09/14. Per the 09/22 Medical Management Progress note and the 09/25 Discharge Summary: Partial Small Bowel Obstruction, managed conservatively is documented. Partial Small Bowel Obstruction is documented in the Surgeon's Progress note on 09/22. Additional clarification is requested regarding the relationship, if any, that exists between the diagnosis of Partial Small Bowell Obstruction and the procedure. Patients Admitting Diagnosis Per the 09/14 General Surgery H/P: Acute Ruptured Appendicitis. 09/14 Procedure Pre-Op Diagnosis: Acute Appendicitis 09/14 Post-Op Diagnosis: Ruptured Appendicitis with possible Cecal Tumor 09/14 Procedure performed: Diagnostic Laparoscopy converted to Laparotomy with Ileocecectomy with Open Repair Umbilical Hernia. 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 Subserosal abscess with fat necrosis, fibrosis and acute serositis consistent with perforated viscus. Benign appendix without histopathologic changes. Five mesenteric lymph nodes negative for metastasis. History/Risk Factors per the 09/25 General Surgery H/P: Anxiety, Migraines. History/Risk Factors per the 09/15 Medical Management Consult: Depression, Smoker. Clinical Indicators: Presented to the ED on 09/14 with right lower quadrant abdominal pain, slight pain in lower back. Admit with Acute Appendicitis with Rupture per the 09/14 CT Abdomen/Pelvis. 09/[address] Abdomen/Pelvis for abdominal tenderness: Partial SBO pattern. Treatment 09/14: Surgery as above. NGT, IV Toradol 15 mg x1, IV Zofran 4 mg x2, IV Na Chl 1,000 mls @ 999 mls/hr q1H x2, IV Zosyn 100 mls @ 200 mls/hr x1, IV Dilaudid 0.5 mg q3H/prn, IV Tylenol 1,000 mg 100 mls @400 mls/hr q6H/prn, Heparin 5,000 units sq, IV Na Chl w/Cefazolin 50 mls. Post op 09/14: IV Dilaudid 1 mg q3H/prn, IV Dilaudid 0.5 mg x1, IV Zofran 4 mg x1, IV Demerol 25 mg x1, IV Tylenol 100 mls @ 400 mls/hr q6H, IV Flagyl 100 mls @ 100 mls/hr q8H, IV Kcl 1,000 mls @ 100 mls/hr q10H, IV Droperidol 0.125 mg x1. 09/22 NPO, NGT placed and continued until 09/23. What relationship, if any, exists between the diagnosis of Partial Small Bowel Obstruction and the procedure: [ ] Partial Small Bowel Obstruction is a complication of surgical procedure [ ] Partial Small Bowel Obstruction is an expected outcome of the surgical procedure [ ] Partial Small Bowel Obstruction is related to patients co-morbid condition(s), please specify: and is not a complication of the procedure [ ] Other please specify: [x ] Unable to determine clinically doubt bowel obstruction more likely postoperative ileus which is an expected diagnosis given the patient's presentation (Template Last Revised: January 2021) MTDD
== END 2022-09-25 15:47 | disposition home health service (06) | DRG 329 ==
LOC: EC 10:54 → 5NMEDONC 12:36
PROVIDERS: ADMIT Surgery; ATTEND Surgery
PROC: 0WQF0ZZ Repair Abdominal Wall, Open Approach (ICD-10-PCS; principal; 2022-09-14 07:30)
PROC: 0WJG4ZZ Inspection of Peritoneal Cavity, Percutaneous Endoscopic Approach (ICD-10-PCS; principal; 2022-09-14 07:30)
PROC: 0DTJ0ZZ Resection of Appendix, Open Approach (ICD-10-PCS; principal; 2022-09-14 07:30)
PROC: 0DTH0ZZ Resection of Cecum, Open Approach (ICD-10-PCS; principal; 2022-09-14 07:30)
PROC: 0D9670Z Drainage of Stomach with Drainage Device, Via Natural or Artificial Opening (ICD-10-PCS; 2022-09-21)
DX: C18.0 Malignant neoplasm of cecum (principal); K35.32 Acute appendicitis with perforation, localized peritonitis, and gangrene, without abscess; K56.7 Ileus, unspecified; K42.9 Umbilical hernia without obstruction or gangrene; E66.9 Obesity, unspecified; Z68.31 Body mass index [BMI] 31.0-31.9, adult; F41.9 Anxiety disorder, unspecified; F17.200 Nicotine dependence, unspecified, uncomplicated; Z71.6 Tobacco abuse counseling; Z53.31 Laparoscopic surgical procedure converted to open procedure; Z88.8 Allergy status to other drugs, medicaments and biological substances; Z71.3 Dietary counseling and surveillance
CPT/HCPCS: 36415; 64999; 74177; 80048; 80053; 81003; 81025; 82570; 83605; 83690; 83735; 85025; 87040; 87324; 88309; 96361; 96374; 96375; 96376; 99285

== ENCOUNTER 2022-10-20 08:19 | Day surgery (SDC) | payer OTHER ==
[2022-10-18 13:18] VITALS: BMI 31.8
[2022-10-20 08:44] VITALS: RESP 18; TEMP 98.6
[2022-10-20] MEDS ORDERED: LIDOCAINE 1% INJ 10MG/ML (5 ML VIAL-PF) SQ ONE (09:22)
[2022-10-20 09:48] VITALS: BP 128/81; PULSE 81
--- NOTE | 2022-10-20 09:54 | IR ---
PICC LINE PLACEMENT: HISTORY: Infection requiring long-term antibiotic therapy PROCEDURE: Ultrasound and fluoroscopic guidance of PICC line placement. COMPLICATIONS: None ANESTHESIA: 1. 1% Lidocaine locally. FINDINGS/TECHNIQUE: The procedure was explained to the patient. The risks, complications, benefits and alternatives were discussed and any questions were answered. Informed consent was obtained. The patient was placed supine on the fluoroscopic table and prepped and draped in the usual sterile fash ion. Utilizing a 21 gauge needle and sonographic and fluoroscopic guidance, access in the left basi lic vein was achieved and there is placement of a 0.018 guidewire. The vein is patent. A 4-F sheath was placed over the guidewire. The guidewire and dilator were removed and a 4-F. PICC line was plac ed through the sheath with the tip at the level of the SVC. The sheath was removed, the catheter was flushed and sutured into position. The patient was stable throughout the procedure and remained sta ble upon discharge from the Department of Radiology. The vein puncture was patent under ultrasound. A rajan scale image was obtained to document patency of the vein punctured. All elements of the maximal barrier technique were utilized. FLUOROSCOPY TIME: 0.1 minutes and 1 images submitted IMPRESSION: Successful PICC line placement under ultrasound and fluoroscopic guidance.
== END 2022-10-20 09:48 | disposition home or self-care (01) ==
LOC: CATHCVL 08:19
PROVIDERS: ATTEND Radiology Diagnostic Radiology
DX: C18.2 Malignant neoplasm of ascending colon (principal); F17.200 Nicotine dependence, unspecified, uncomplicated; Z79.01 Long term (current) use of anticoagulants; Z90.49 Acquired absence of other specified parts of digestive tract; Z80.42 Family history of malignant neoplasm of prostate; Z71.3 Dietary counseling and surveillance
CPT/HCPCS: 36573; C1751; C1769; J2001

== ENCOUNTER → 2023-02-13 | Outpatient (CLI) | payer OTHER ==
--- NOTE | 2023-02-14 07:39 | MM ---
Reason for Exam: Screening (asymptomatic). Last screening mammogram was performed 12 month(s) ago. Patient History: Menarche at age 12. First Full-Term at age 21. Previous chemotherapy at age 52. Hormonal Contraceptives for 18 years from age 17 until age 39. Risk Values: Sheryl 5 year model risk: 0.9%. NCI Lifetime model risk: 7.8%. Prior Study Comparison: 07/12/2015 Screening Mammogram, [facility]. 10/03/2016 Screening Mammogram, [facility]. 02/06/2022 Bilateral Screening Mammogram, [facility]. Tissue Density: There are scattered fibroglandular densities. Findings: Analyzed By CAD. There is no suspicious group of microcalcifications or new suspicious mass in either breast. Overall Assessment: Benign, BI-RAD 2 Management: Screening Mammogram of both breasts in 1 year. A clinical breast exam by your physician is recommended on an annual basis and results should be correlated with mammographic findings. Electronically signed and approved by: Bony Carson M.D. Radiologis
== END | disposition home or self-care (01) ==
LOC: RADMAMWWP 07:16
PROVIDERS: ATTEND Family Medicine
DX: Z12.31 Encounter for screening mammogram for malignant neoplasm of breast (principal); Z98.890 Other specified postprocedural states
CPT/HCPCS: 77063; 77067

== ENCOUNTER → 2023-09-17 | Outpatient (CLI) | payer OTHER ==
--- NOTE | 2023-09-19 17:00 | CT ---
EXAMINATION TYPE: CT ChestAbdPelvis w con DATE OF EXAM: 09/17/2023 INDICATION: Hx colon ca COMPARISON: 09/01/2022 CT DLP: 1742.50 mGycm CONTRAST: Performed with Oral Contrast and with IV Contrast, patient injected with 100 mL of Isovue 300. TECHNIQUE: Axial images at 5 mm thick sections. Reconstructed images in the coronal plane. Delayed images through the kidneys. FINDINGS: CT CHEST: Portion of the thyroid visualized is normal. No suspicious lung nodules or focal infiltrates are present. No enlarged mediastinal or hilar adenopathy is evident. The ascending aorta diameter at the level of the main pulmonary artery is 3.2 cm. The main pulmonary artery diameter at the bifurcation is 3.[address] ABDOMEN: Liver: Hepatic cysts are evident. No discrete masses are evident. Spleen: Normal Pancreas: Normal Adrenal glands: The adrenal glands are normal. Gallbladder: Normal Kidneys: No masses are evident. No hydronephrosis is present. No cysts are present. Delayed images were obtained through the kidneys, which remain unremarkable. Aorta: Vascular calcification is within the aorta. Inferior vena cava: Normal. CT PELVIS: Loops of bowel within the abdomen and pelvis are normal. Diverticular changes are within the sigmoid colon. Portions of the colon containing contrast appears unremarkable. There are loops of bowel wh ich are incompletely distended or lack oral contrast limiting their evaluation. Appendix: Not identified. No dilated tubular structure or inflammatory change is evident. Urinary bladder: Decompressed with limited evaluation. Genitourinary structures: Uterus appears normal. Adnexa are unremarkable. Osseous structures: No suspicious lytic or sclerotic lesions. IMPRESSION: 1. No suspicious changes to suggest recurrent or metastatic colon cancer. 2. Diverticulosis without acute diverticulitis. 3. Hepatic cysts
== END | disposition home or self-care (01) ==
LOC: RADCTMAIN 13:08
PROVIDERS: ATTEND Internal Medicine Hematology & Oncology
DX: C18.2 Malignant neoplasm of ascending colon (principal); K76.89 Other specified diseases of liver; K57.30 Diverticulosis of large intestine without perforation or abscess without bleeding; Z71.3 Dietary counseling and surveillance
CPT/HCPCS: 71260; 74177; Q9967